=== PATIENT | female | born 1940 | race Caucasian/White ===

== ENCOUNTER 2019-04-02 20:01 | Inpatient (IN) | payer MEDICARE ==
[2019-04-02] MEDS ORDERED: Albuterol Sulfate 2.5 mg/3 ml Neb ONE (20:17)
--- NOTE | 2019-04-02 20:49 | RAD ---
PORTABLE CHEST: HISTORY: Shortness of breath. COMPARISON: None. FINDINGS: Moderate-sized left effusion. Cardiomegaly. Vascular congestion. Left basilar atelectasis due to t he large effusion. Left basilar infiltrate cannot be excluded. Surgical clips in the left axilla may indicate prior left breast procedure. IMPRESSION: 1. Moderate-sized left effusion. 2. Cardiomegaly with mild vascular congestion. POS: NGOC
[2019-04-02] MEDS ORDERED: predniSONE 20 MG TAB ONE (20:59)
[2019-04-02 21:06] LABS: Band 8 % (5-11); Hemoglobin 10.4 g/dL (12.0-16.0); Lymphocytes 5 % (21-51); MDiff Complete? YES; Mean Corpuscular HGB CONC 32.8 g/dL (32.0-36.0); Mean Corpuscular Hemoglobin 29.4 pg (27.0-31.0); Mean Corpuscular Volume 89.4 fL (78.0-98.0); Mean Platelet Volume 6.5 fL (7.4-10.4); Metamyelocyte 1 % (0-0); Monocytes 3 % (0-10); Neutrophil 83 % (42-75); Platelet Count 493 thou/uL (130-400); Platelet Morphology Comment Appears Increased; RBC Distribution Width 14.7 % (11.5-14.5); Red Blood Cell (RBC) Count 3.53 mill/uL (4.20-5.40); White Blood Cell (WBC) Count 19.2 thou/uL (4.8-10.8)
[2019-04-02 21:10] LABS: ALT (SGPT) 76 U/L (8-55); AST (SGOT) 74 U/L (5-34); Albumin 2.9 g/dL (3.4-4.8); Alkaline Phosphatase 226 U/L (40-150); Anion Gap 15 mmol/L (10-20); BUN (Urea Nitrogen) 26 mg/dL (9.8-20.1); Bilirubin, Total 0.4 mg/dL (0.2-1.2); Calc. Creatinine Clearance 0 mL/min (70-130); Calcium 9.1 mg/dL (7.8-10.44); Carbon Dioxide 22 mmol/L (23-31); Chloride 91 mmol/L (98-107); Estimated GFR-MDRD 53; Globulin 3.2 g/dL (2.4-3.5); Glucose 132 mg/dL (83-110); Potassium 3.3 mmol/L (3.5-5.1); Protein, Total 6.1 g/dL (6.0-8.3); Sodium 125 mmol/L (136-145)
[2019-04-02 23:19] LABS: Actual Bicarbonate (HCO3a) 22.5 mEq/L (22-28); Analyzer IN Cardio ER; Base Excess (BEa) -1.7 mEq/L (-2.0 to +3.0); CO2 Tension 36.3 mmHg (35.0-45.0); Calcium, Ionized 1.17 mmol/L (1.12-1.30); Carboxyhemoglobin (COHb) 0.8 gm% (0.0-3.0); Hemoglobin (Hb) 11.1 g/dL (12.0-16.0); O2 Tension (PaO2) 61.4 mmHg (> 70.0); pH, Arterial 7.41 (7.35-7.45)
[2019-04-02 23:21] LABS: ALV-art Gradient 92.865 (0-20); Puncture Site RRA
[2019-04-02 23:44] VITALS: BMI 23.4
[2019-04-03] MEDS ORDERED: Mirtazapine 15 MG TAB PO SCH (01:00)
[2019-04-03] MEDS ORDERED: Ondansetron PF 4 MG/2 ML Vial IVP PRN (01:49)
[2019-04-03] MEDS ORDERED: Acetaminophen 500 MG TAB PO PRN (01:49)
[2019-04-03] MEDS ORDERED: Ondansetron ODT 4 MG TAB PO PRN (01:49)
[2019-04-03] MEDS ORDERED: Benzonatate 100 MG CAP PO PRN (01:49)
[2019-04-03] MEDS ORDERED: hydrALAZINE 20 MG/ML VIAL SLOW IVP PRN (01:49)
[2019-04-03] MEDS ORDERED: Potassium Chloride 20 MEQ TAB PO SCH ×2 (02:00→08:00)
[2019-04-03 02:40] LABS: Band 14 % (5-11); Hemoglobin 9.7 g/dL (12.0-16.0); Lymphocytes 3 % (21-51); MDiff Complete? YES; Mean Corpuscular HGB CONC 33.2 g/dL (32.0-36.0); Mean Corpuscular Hemoglobin 29.6 pg (27.0-31.0); Mean Corpuscular Volume 89.1 fL (78.0-98.0); Mean Platelet Volume 6.4 fL (7.4-10.4); Monocytes 2 % (0-10); Neutrophil 81 % (42-75); Platelet Count 438 thou/uL (130-400); Platelet Morphology Comment Appears Increased; RBC Distribution Width 14.8 % (11.5-14.5); Red Blood Cell (RBC) Count 3.28 mill/uL (4.20-5.40); White Blood Cell (WBC) Count 21.1 thou/uL (4.8-10.8)
[2019-04-03 02:52] LABS: ALT (SGPT) 78 U/L (8-55); AST (SGOT) 82 U/L (5-34); Albumin 2.6 g/dL (3.4-4.8); Alkaline Phosphatase 197 U/L (40-150); Anion Gap 11 mmol/L (10-20); BUN (Urea Nitrogen) 24 mg/dL (9.8-20.1); Bilirubin, Total 0.4 mg/dL (0.2-1.2); Calc. Creatinine Clearance 55 mL/min (70-130); Carbon Dioxide 24 mmol/L (23-31); Chloride 93 mmol/L (98-107); Estimated GFR-MDRD 65; Glucose 125 mg/dL (83-110); Potassium 3.6 mmol/L (3.5-5.1); Protein, Total 5.6 g/dL (6.0-8.3); Sodium 124 mmol/L (136-145)
[2019-04-03] MEDS: methylPREDNISolone Sod Succ 40 MG VIAL IVP SCH ×2 (05:15→11:42)
--- NOTE | 2019-04-03 08:18 | HP ---
PRIMARY CARE PROVIDER: Dr. Lagunas at [facility]. CHIEF COMPLAINT: Shortness of breath. HISTORY OF PRESENT ILLNESS: This is a 78-year-old female, who presented to [facility] Emergency Department with approximate 2-day history of cough, fever and shortness of breath. The daughter reports that the patient's spouse was recently diagnosed with upper respiratory infection and treated with antibiotic therapy, noting her mother presenting with similar complaints. However, did not respond to a breathing treatment which the daughter administered from a home nebulizer that belongs to the patient's . The patient was apparently noted 83% on room air and did not respond to the bronchodilator therapy. No specific history of lung disease chronic oxygen use, or travel history. No associated nausea, vomiting, diarrhea, or antibiotic exposure. The patient stated her symptoms were worse with deep inspiration or lying flat. In the emergency room, the patient underwent general evaluation including chest imaging showing evidence of left-sided pleural effusion with cardiomegaly and mild vascular prominence. The patient was treated in the emergency room with prednisone 60 mg x1 dose in addition to DuoNeb and albuterol sulfate nebulized solution. The patient was transferred to the telemetry unit for further evaluation. PAST MEDICAL HISTORY: 1. Hypertension. 2. Hyperlipidemia. 3. Depression. PAST SURGICAL HISTORY: Reviewed and negative. CURRENT MEDICATIONS: 1. Lipitor 40 mg p.o. at bedtime. 2. Amlodipine 10 mg p.o. daily. 3. Atenolol 50 mg p.o. at bedtime. 4. Mirtazapine 15 mg p.o. at bedtime. 5. Benazepril 20 mg p.o. daily. ALLERGIES: NO TRUE DRUG ALLERGIES, PER DAUGHTER'S REPORT, HOWEVER, PATIENT WITH MULTIPLE DRUGS WITH INTOLERANCE AND SIDE EFFECTS. FAMILY HISTORY: Positive for hypertension. SOCIAL HISTORY: The patient resides in [place], [place] and , accompanied by her daughter in the hospital. Retired. No current alcohol, tobacco, or illicit drug use. REVIEW OF SYSTEMS: CONSTITUTIONAL: Negative for weight loss or gain, ability to conduct usual activities. SKIN: Negative for rash, itching. EYES: Negative for double vision, pain. ENT/MOUTH: Negative for nose bleeding, neck stiffness, pain, tenderness. CARDIOVASCULAR: Negative for palpitations, dyspnea on exertion, orthopnea. RESPIRATORY: Negative for shortness of breath, wheezing, cough, hemoptysis, fever or night sweats. GASTROINTESTINAL: Negative for poor appetite, abdominal pain, heartburn, nausea, vomiting, constipation, or diarrhea. GENITOURINARY: Negative for urgency, frequency, dysuria, nocturia. MUSCULOSKELETAL: Negative for pain, swelling. NEUROLOGIC/PSYCHIATRIC: Negative for anxiety, depression. ALLERGY/IMMUNOLOGIC: Negative for skin rash, bleeding tendency. Otherwise, negative except as stated per HPI. PHYSICAL EXAMINATION: VITAL SIGNS: On admission. Blood pressure 137/61, pulse 89, respiratory rate 20, temperature 98.5 degrees Fahrenheit, O2 saturation 94% on 3 L/minute by nasal cannula. GENERAL APPEARANCE: This is a 78-year-old female, alert and oriented x3, pleasant, in mild respiratory distress. HEENT: Pupils are equal, round, reactive to light and accommodation. Extraocular muscles are intact. No scleral icterus. No conjunctival injection. Nares patent. OP is clear. Teeth in good repair. NECK: Supple. No cervical adenopathy. No thyromegaly. No carotid bruits. No JVD appreciated. Cervical spine with full active and passive range of motion. No meningeal signs noted. CHEST: Diminished breath sounds bilaterally, left greater than right. Expiratory wheezing noted and scattered rhonchi. CARDIOVASCULAR: S1, S2 without noted murmur, rub, or gallop. ABDOMEN: Rounded, soft, nontender, and nondistended. Bowel sounds are positive in all 4 quadrants. There is no hepatosplenomegaly. No abdominal bruits. No rebound or guarding appreciated. EXTREMITIES: Warm and dry with fair turgor. No clubbing, cyanosis, or asymmetric edema appreciated. Pulses palpable distally at the dorsalis pedis, posterior tibial, and popliteal arteries bilaterally. Capillary refill is less than 2 seconds. NEUROLOGIC: Cranial nerves 2 through 12 are grossly intact. No focal or lateralizing signs appreciated. PERTINENT LAB AND X-RAY FINDINGS: Sodium 125, potassium 3.3, chloride 91, CO2 of 22, BUN 26, creatinine 1.02, estimated GFR 53, glucose 132, lactic acid level 0.7, calcium 9.1, AST 74, ALT of 76, alkaline phosphatase 226. BNP 523. Troponin negative x1. CBC showed a white blood cell count of 19.2, hemoglobin 10, hematocrit 32, platelet count 493 with 83% neutrophils. ABG dated 04/02/2019 on 28% FiO2 showed a pH of 7.41, pCO2 36.3, PO2 61.4, bicarb 22.5, O2 saturation 90%. Portable chest x-ray dated 04/02/2019, showed moderate left-sided pleural effusion with cardiomegaly and mild vascular prominence. EKG dated 04/02/2019, by my interpretation, shows sinus mechanism with heart rates in the 90s. Normal R-wave progression noted in the precordial leads. Right bundle-branch block pattern noted. Bifascicular block pattern noted. ASSESSMENT/PLAN: 1. Acute hypoxic respiratory failure. Suspect secondarily to left pleural effusion and questionable early pneumonia. We will continue oxygen supplementation to maintain O2 saturations greater than or equal to 90%. See management below for further details. 2. Bacterial pneumonia, left lower lobe. Suspected given the patient's presentation with questionable parapneumonic effusion. Continue antibiotic therapy with Levaquin 750 mg IV daily. Add DuoNeb q.4 hours. Continue Solu-Medrol 40 mg IV q.6 hours. 3. Left pleural effusion. Exact etiology unclear. Questionable infectious process versus component of early heart failure. Continue Lasix 40 mg IV q.12 hours. Check 2D transthoracic echocardiogram for assessment of ejection fraction and cardiac efficiency. 4. Hyponatremia. Suspect secondary to volume overload and decreased oral intake. Serial sodium monitoring with diuretic therapy. 5. Hypokalemia. Potassium chloride 40 mEq p.o. b.i.d. and repeat potassium level in the a.m. 6. Transaminitis. Suspect hepatic congestion as underlying etiology. Hold Lipitor. Repeat LFTs in the a.m. 7. Neutrophilic leukocytosis. Suspect secondary to #2. Repeat CBC in the a.m. 8. Prophylaxis. SCDs while in bed. Pepcid 20 mg p.o. b.i.d. 9. Code status is do not attempt resuscitation, confirmed with the patient and daughter. Surrogate medical decision maker is the patient's daughter. Job ID: [id number]
[2019-04-03] MEDS: Famotidine 20 MG TAB PO SCH (08:36)
[2019-04-03] MEDS: Furosemide 40 MG/4 ML VIAL SLOW IVP SCH (08:36)
[2019-04-03 13:06] LABS: BF Color Yellow; Body Fluid Source Thoracentesis Fluid; Clarity Hazy (Clear); Tube # 1
[2019-04-03 13:07] LABS: BF RBC Count - Manual 114 /cumm
[2019-04-03 13:37] LABS: Cell Count Non Hematic 65 %; Lymphocytes 15 %
[2019-04-03 13:38] LABS: BF Segmented Neutrophils 10 %; Eosinophils 10 %
[2019-04-03 13:58] LABS: Pleural Fluid, Protein 3.3 g/dL
--- NOTE | 2019-04-03 14:40 | PDOC.EVN ---
Event Note - Event Note Event Note: Pt seen and examined.Chart reviewed. Pt w large pleural effusion ,coming in w Ac Respiratory failire consulted PCCM and bedside Thoracentesis done w removal of 1800 ml pleural fluid from left side.Pt feels better now.care discussed w family at bedside ECHOordered results pending. add abdominal US for LFt elevation but most likley due to Passive hepatic congestion from CHF.cont diuresis & fluid restriction Consult nephrology for hyponatremia. likely Hypervolemic from CHF.Monitor HD stable & clinically better.will follow
[2019-04-03 14:53] LABS: WBC/NonHematic-Auto 430 /cumm
--- NOTE | 2019-04-03 16:20 | OP ---
DATE OF PROCEDURE: 04/03/2019 SERVICE: Pulmonary Medicine. PROCEDURE PERFORMED: Left-sided thoracentesis, ultrasound-guided. CONSENT: Risks and benefits of the procedure were explained to the patient. All questions were answered and alternative options explained. STAFF PHYSICIAN: Arun Rodrigues MD MEDICATIONS USED: Lidocaine 1% without epinephrine, total quantity 8 mL. PREOPERATIVE DIAGNOSES: 1. Sepsis. 2. Pleural effusion. POSTPROCEDURE DIAGNOSES: 1. Sepsis. 2. Acute hypoxic respiratory failure. DESCRIPTION OF PROCEDURE: Time-out was performed by the procedure team and the patient. The patient was positively identified using name and date of . The procedure site was marked. Vital sign monitoring was accomplished by noninvasive hemodynamic monitoring, pulse oximetry, and telemetry. In the seated position, the left posterior hemothorax was examined using ultrasound probe. The diaphragm and pleural fluid were easily identified. The skin was prepped and draped in sterile fashion and anesthetized with 1% lidocaine without epinephrine. A finder needle was inserted in the pleural space with return of clear yellow pleural fluid. A pleural drainage catheter was inserted in the same location, and a total quantity of 1800 mL of minimally opaque yellow fluid was withdrawn by syringe pump technique. A sample was sent for analysis. Evacuation of fluid term was terminated because we arrived at -20 cm of water pressure. At that time, the fluid being withdrawn was respirophasic. The intact catheter was withdrawn on exhalation, and a sterile dressing was applied. The patient had stable vitals throughout the entire procedure. ESTIMATED BLOOD LOSS: Less than 1 mL. COMPLICATIONS: None. Job ID: [id number]
--- NOTE | 2019-04-03 17:36 | CON ---
DATE OF CONSULTATION: 04/03/2019 SERVICE: Pulmonary Medicine. REASON FOR CONSULTATION: Pleural effusion. HISTORY OF PRESENT ILLNESS: The patient is a 78-year-old white female with past medical history significant for COPD. She was in her usual state of health until about 10 days prior to admission when she started having increasing dyspnea with exertion. She specifically denies orthopnea, nausea, vomiting, diarrhea, arthralgias, hot or red or swollen joints, chest discomfort, or palpitations. She presented to the emergency department and was discovered to have a large pleural effusion. Overnight, she was diuresed. She is feeling a little bit better this morning. Otherwise, she has no specific complaints. She indicates having some low-grade temperatures. PAST MEDICAL HISTORY: Hypertension Dyslipidemia Major depressive disorder PAST SURGICAL HISTORY: None FAMILY HISTORY: Noncontributory. SOCIAL HISTORY: Negative to tobacco, alcohol, or illicit drug use. No exposure to chemicals, dusts, dusts, or tuberculosis. ALLERGIES: No true drug allergies. MEDICATIONS: List of inpatient medications were reviewed. Steroids have been converted over to an oral medication. REVIEW OF SYSTEMS: General, Head, Ears, Eyes, Nose, Throat, Cardiovascular, Respiratory, GI, , Musculoskeletal, Neurologic, and Skin are negative except as mentioned in the HPI. PHYSICAL EXAMINATION: VITAL SIGNS: Afebrile, pulse 84, blood pressure 139/61, 96% on 3L nasal cannula. GENERAL: The patient is awake and alert, in no apparent distress. LUNGS: Decent air entry on the right. There is decreased air entry on the left. There is rhonchi and wheezing both present. Dependent crackles are present bilaterally. HEART: Normal rate, regular. ABDOMEN: Soft, nontender, and nondistended. Bowel sounds are positive. MUSCULOSKELETAL: No cyanosis or clubbing. There is no pitting in the bilateral lower extremities. NEUROLOGIC: Nonfocal. LABORATORY DATA: WBC 21.1, hemoglobin 9.7, and platelets 438,000. A pH 7.41, pCO2 of 36, pO2 of 62. Sodium 124, basic metabolic profile is otherwise unremarkable with a downtrending creatinine of 0.85. AST and ALT are marginally elevated. Alkaline phosphatase is downtrending. Troponin is negative x1. Lactate is unremarkable. BNP 522. IMAGING STUDIES: Chest x-ray shows a large left-sided pleural effusion. Pulmonary vascular congestion and interstitial edema are also present. No obvious infiltrate is present, though it cannot be excluded on the basis of this x-ray. ASSESSMENT: 1. Sepsis. 2. [id number] heart failure, not otherwise specified. 3. Pleural effusion on the left. 4. Community-acquired pneumonia, possible. 5. Chronic obstructive pulmonary disease with acute exacerbation. 6. Acute hypoxic respiratory failure. DISCUSSION AND PLAN: Agree with our empiric antibiotics. We will need to proceed with a thoracentesis to characterize the quality of this fluid and exclude the possibility of infectious or malignant process. Pulmonary/ Critical Care will continue to follow along. 70 minutes have been devoted to this patient in various activities. I personally reviewed all imaging studies and laboratory data noted within this document. For fifty percent of this time, I was interacting with the patient at the bedside or coordinating care with the care team. For the remainder of the time I was immediately available to the patient in the hospital unit. Job ID: [id number] MTDD
--- NOTE | 2019-04-03 19:45 | ULT ---
ABDOMINAL ULTRASOUND: 04/03/19 HISTORY: Elevated LFTs. Real time imaging of the upper abdomen shows a normal appearing gallbladder. The common duct is aiden l in caliber at 3 mm. The visualized liver parenchyma shows no focal findings. It measures 15 cm in length. The spleen measures 7.9 cm. The right and left kidneys are within normal limits of size and not obstructed. The pancreas is obscu red. Portions of the abdominal aorta and IVC region are also obscured. IMPRESSION: Unremarkable abdomen ultrasound. POS: NGOCH
[2019-04-03] MEDS: Ascorbic Acid 500 mg Chewable Tablet PO SCH (20:47)
[2019-04-03] MEDS: Atenolol 50 MG TAB PO SCH (20:47)
[2019-04-03] MEDS: Mirtazapine 15 MG TAB PO SCH (20:48)
[2019-04-03] MEDS: Multivit, Therapeutic 1 TAB PO SCH (20:49)
[2019-04-03] MEDS ORDERED: Amlodipine 10 MG TAB PO SCH (21:00)
[2019-04-03] MEDS ORDERED: Atorvastatin Calcium 40 MG TAB PO SCH (21:00)
--- NOTE | 2019-04-04 02:07 | CON ---
DATE OF CONSULTATION: CONSULTING PHYSICIAN: Christine Godoy MD REASON FOR CONSULTATION: Hyponatremia. IMPRESSION: Hyponatremia. This is possibly in syndrome of inappropriate antidiuretic hormone secretion, but cannot rule out other potential causes of hyponatremia including hypovolemic hyponatremia or dilutional hyponatremia. PLAN: 1. Urine chemistry to be able to identify what type of hyponatremia to get treatment accordingly. Therefore, we will send urine sodium and urine osmolality. 2. For now, we will place this patient on fluid restriction and increase the protein intake in the way of increased animal meat. 3. Further management will be dependent on the clinical course. HISTORY OF PRESENT ILLNESS: That of a 78-year-old female patient who presented here with shortness of breath, noted with a sodium of 125 on presentation. As a result, renal consultation has been placed. The patient denies any nausea, vomiting or diarrhea. Was recently diagnosed with upper respiratory tract infection. As a result of this pulmonary involvement, the potential SIADH as a cause of this hyponatremia is being considered. PAST MEDICAL HISTORY: Significant for hypertension, dyslipidemia, and depression. MEDICATIONS: Reviewed and documented on [employer]. ALLERGIES: NO KNOWN DRUG ALLERGIES. FAMILY HISTORY: Not significantly related to present illness. SOCIAL HISTORY: Many years of tobacco use, quit about 3 weeks ago. No illicit drug use. No alcohol. REVIEW OF SYSTEMS: As documented in the body of the history. All the other systems were reviewed and found not to be significantly related to presenting illness. PHYSICAL EXAMINATION: GENERAL: The patient was found to be ill looking. VITAL SIGNS: Noted with the following vital signs; afebrile, temperature 97.9, pulse 87, respiratory rate of 16, O2 saturation 100% on 2 L with a blood pressure of 112/60. HEENT: Unremarkable. Moist oral mucosa. NECK: Supple. No conjunctival injection or icterus. CARDIOVASCULAR: First and second heart sounds were heard. RESPIRATORY: Clear to auscultation. DIGESTIVE: Revealed a distended abdomen. EXTREMITIES: No peripheral edema. SKIN: No new gross rash. LYMPHATICS: No peripheral lymphadenopathy. SUMMARY: This is a 78-year-old female patient who presented with shortness of breath, noted with hyponatremia, thus the renal consultation. Thank you for this consultation. We will follow with you. Job ID: [id number]
[2019-04-04 05:33] LABS: ALT (SGPT) 84 U/L (8-55); AST (SGOT) 80 U/L (5-34); Albumin 2.4 g/dL (3.4-4.8); Alkaline Phosphatase 165 U/L (40-150); Anion Gap 10 mmol/L (10-20); BUN (Urea Nitrogen) 23 mg/dL (9.8-20.1); Band 6 % (5-11); Bilirubin, Total 0.2 mg/dL (0.2-1.2); Calc. Creatinine Clearance 52 mL/min (70-130); Calcium 8.7 mg/dL (7.8-10.44); Carbon Dioxide 22 mmol/L (23-31); Chloride 98 mmol/L (98-107); Estimated GFR-MDRD 61; Globulin 2.5 g/dL (2.4-3.5); Glucose 154 mg/dL (83-110); Hemoglobin 9.6 g/dL (12.0-16.0); Hypochromia SLIGHT = 6-15 cells (100X) (0-5/hpf); Lymphocytes 3 % (21-51); MDiff Complete? YES; Mean Corpuscular HGB CONC 32.2 g/dL (32.0-36.0); Mean Corpuscular Hemoglobin 29.1 pg (27.0-31.0); Mean Corpuscular Volume 90.2 fL (78.0-98.0); Mean Platelet Volume 6.4 fL (7.4-10.4); Monocytes 2 % (0-10); Neutrophil 88 % (42-75); Platelet Count 445 thou/uL (130-400); Platelet Morphology Comment Appears Increased; Potassium 4.4 mmol/L (3.5-5.1); Protein, Total 4.9 g/dL (6.0-8.3); Reactive Lymphocytes 1 % (0-10); Sodium 126 mmol/L (136-145); White Blood Cell (WBC) Count 19.3 thou/uL (4.8-10.8)
[2019-04-04] MEDS: Famotidine 20 MG TAB PO SCH (08:48)
[2019-04-04] MEDS: Furosemide 40 MG/4 ML VIAL SLOW IVP SCH (08:49)
[2019-04-04] MEDS: predniSONE 20 MG TAB PO SCH (08:49)
[2019-04-04] MEDS ORDERED: Tolvaptan 15 MG TAB PO SCH (09:00)
--- NOTE | 2019-04-04 10:43 | PRG ---
DATE OF SERVICE: 04/04/2019 SUBJECTIVE: The patient is seen and examined. Noted with the following vital signs. OBJECTIVE: VITAL SIGNS: Afebrile, temperature 98.6, pulse 92, respiratory rate of 19, O2 saturations 93% with blood pressure of 106/55. HEENT: Unremarkable. Wet mucosa. NECK: Supple. No conjunctival injection or icterus. CARDIOVASCULAR SYSTEM: First and second heart sounds were heard. RESPIRATORY SYSTEM: Revealed diminished breath sounds. EXTREMITIES: No peripheral edema. SKIN: No new gross rash. LYMPHATICS: No peripheral lymphadenopathy. LABORATORY INVESTIGATION: Showed sodium of 126. Urine chemistry shows sodium of 36, . IMPRESSION: Hyponatremia likely in the context of syndrome of inappropriate antidiuretic hormone secretion, which most likely have been secondary to pulmonary pathology. PLAN: 1. Discontinue IV Lasix. 2. Increase protein intake. 3. Anti-ADH tolvaptan to be initiated. 4. Repeat sodium level check later today and make further changes accordingly. Job ID: [id number]
--- NOTE | 2019-04-04 11:01 | PRG ---
DATE OF SERVICE: 04/04/2019 SERVICE: Pulmonary Medicine. INTERVAL HISTORY: The patient is doing fine from respiratory standpoint. Breathing comfortably. No complaints of chest discomfort, nausea, or vomiting. She slept well last night. She is not coughing up any sputum. PHYSICAL EXAMINATION: VITAL SIGNS: Afebrile, pulse 92, blood pressure 106/55, respirations 19, saturation 93% on 2 L nasal cannula. GENERAL: The patient is awake and alert, in no apparent distress. LUNGS: Decent air entry. No crackles are appreciated. HEART: Normal rate, regular. ABDOMEN: Soft, nontender, nondistended. Bowel sounds are positive. MUSCULOSKELETAL: No cyanosis or clubbing. No pitting in the bilateral lower extremities. NEUROLOGIC: Grossly nonfocal. LABORATORY DATA: WBC 19.3, hemoglobin 9.6 and stable, platelets 445,000. Neutrophil count is 88%, band count is dropping to 6%. Sodium 126 and up trending gently. Creatinine 0.9. Basic metabolic profile is otherwise unremarkable. AST and ALT are stable. Alkaline phosphatase continues to downtrend. Pleural fluid LDH 144, total protein 3.3. Blood cultures x2 and body fluid culture otherwise unremarkable. IMAGING STUDIES: Echocardiogram shows a normal ejection fraction at 55% to 60%. Mild mitral regurgitation is present. There is a large pleural effusion (prior to thoracentesis). ASSESSMENT: 1. Acute hypoxic respiratory failure, resolved. 2. Pleural effusion on the left, status post thoracentesis demonstrating a weak exudate, cytology pending. 3. Community-acquired pneumonia, unlikely. 4. Chronic obstructive pulmonary disease with volume overloaded state. 5. Sepsis, improving. DISCUSSION AND PLAN: We will continue our antibiotics. We are waiting on the cytology of the fluid. It does not look like a parapneumonic effusion. It is a weak exudate. The cell type is curious. There are 10% eosinophils and this was identified after steroids were initiated. Pulmonary/Critical Care will continue to follow along for the time being. Job ID: [id number]
--- NOTE | 2019-04-04 14:02 | PQF ---
INOCENCIO OLIVAS RICHA MD [phone] [id number] [phone] CLINICAL DOCUMENTATION IMPROVEMENT CLARIFICATION FORM: ICD-10 Updated PLEASE DO AN ADDENDUM TO THE PROGRESS NOTE WITH ANY DOCUMENTATION UPDATES OR ADDITIONS AND CARRY THROUGH TO DC SUMMARY. THANK YOU. DATE: 04/04/19 ATTN:DR. Naren DENNIS Please exercise your independent, professional judgment in responding to the clarification form. Clinical indicators are provided on the bottom of this form for your review. Please check appropriate box(s): HEART FAILURE: A. TYPE: [ ] Systolic / HFrEF [ ] Diastolic / HFpEF [ ] Combined Systolic / Diastolic B. ACUITY [ ] Acute [ ] Acute on Chronic [ ] Chronic [ X ] Other diagnosis [ ] Unable to determine In addition, please specify: Present on Admission (POA): [ ] Yes [ ] No [ X ] Unable to determine For continuity of documentation, please document condition throughout progress notes and discharge summary. Thank You. CLINICAL INDICATORS - SIGNS / SYMPTOMS / LABS 04/03 ( JOSE) H & P : ASSESSMENT AND PLAN 3). LEFT PLEURAL EFFUSION. EXACT ETIOLOGY UNCLEAR. QUESTIONABLE INFECTIOUS PROCESS VERSES COMPONENT OF EARLY HEART FAILURE. 04/03 (BRADING CONSULT ) ASSESSMENT : 2). ACUTE ON CHRONIC HEART FAILURE, NOT OTHERWISE SPECIFIED 04/03 ECHO: EF 55-60%, NORMAL SIZE LEFT ATRIUM, LEFT VENTRICULAR SIZE IS NORMAL , MILD MITRAL /TRICUSPID REGURGITATION IS PRESENT, LARGE PLEURAL EFFUSION. RISK: ADVANCED AGE ( 78) PLEURAL EFFUSION H& P (JOSE) PNEUMONIA H& P (JOSE) TREATMENTS: LASIX IVP (04/03-PRESENT) FLUID RESTRICTION (04/03-PRESENT) THORACENTESIS 04/03 (1800ML FLUID REMOVAL) THANK YOU! LIBIA (This form is maintained as a part of the permanent medical record) 2014 [employer] All Rights Reserved [email or web address] [phone] MAVIS
[2019-04-04 16:06] LABS: Sodium 127 mmol/L (136-145)
--- NOTE | 2019-04-04 16:59 | PDOC.PN ---
- Subjective Encounter Start Date: 04/04/19 Encounter Start Time: 16:58 Subjective: feels much better.appetite coming back -: no CP/SOB - Objective Resuscitation Status - Order Detail: 04/03/19 01:39 Resuscitation Status Routine Resuscitation Status: DNAR: NO Resuscitation Discussed with: Confirmed with patient MAR Reviewed: Yes Vital Signs & Weight: Vital Signs (12 hours) Temp Pulse Resp BP Pulse Ox 04/04/19 16:00 98.4 F 89 18 103/55 L 100 04/04/19 12:32 90 14 04/04/19 12:00 98.2 F 90 18 108/51 L 94 L 04/04/19 07:47 98.6 F 92 19 106/55 L 93 L 04/04/19 07:26 80 14 Weight Weight 138 lb 1.6 oz I&O: 04/03/19 04/04/19 04/05/19 06:59 06:59 06:59 Intake Total 180 650 Output Total 275 2475 Balance -95 -1825 Result Diagrams: 04/04/19 04:51 04/04/19 15:31 Additional Labs: Microbiology 04/03/19 11:35 Pleural fluid Body Fluid Culture - Preliminary 04/03/19 02:19 Venous blood - Right Arm Blood Culture - Preliminary Specimen has been received and culture in progress. No Growth to date. 04/03/19 02:12 Venous blood - Right Arm Blood Culture - Preliminary Specimen has been received and culture in progress. No Growth to date. Laboratory Tests 04/02/19 20:40 Troponin I Less than 0.010 Phys Exam - Physical Examination Constitutional: NAD HEENT: PERRLA, moist MMs, sclera anicteric, oral pharynx no lesions Neck: no nodes, no JVD, supple, full ROM Respiratory: no wheezing, no rales, no rhonchi, clear to auscultation bilateral Cardiovascular: RRR, no significant murmur Gastrointestinal: soft, non-tender, no distention, positive bowel sounds Musculoskeletal: no edema, pulses present Neurological: non-focal, normal sensation, moves all 4 limbs Psychiatric: normal affect, A&O x 3 Skin: no rash Dx/Plan (1) ac hypoxic respiratory failure Status: Acute Comment: Due to #2.and may be COPD and PNA.Better after thoracentesis.ConT prednisone,IV Abx (2) Pleural effusion Code(s): J90 - PLEURAL EFFUSION, NOT ELSEWHERE CLASSIFIED Status: Acute Comment: follow fluid Cx and Cell pathology results (3) Hyponatremia Code(s): E87.1 - HYPO-OSMOLALITY AND HYPONATREMIA Status: Acute Comment: joe SIADH from Lung process.Started on Tolvaptan and fluid restriction.monitor. (4) PNA (pneumonia) Code(s): J18.9 - PNEUMONIA, UNSPECIFIED ORGANISM Status: Acute Comment: empiric IV ABx. (5) SIRS (systemic inflammatory response syndrome) Code(s): R65.10 - SIRS OF NON-INFECTIOUS ORIGIN W/O ACUTE ORGAN DYSFUNCTION Status: Acute (6) LFT elevation Code(s): R94.5 - ABNORMAL RESULTS OF LIVER FUNCTION STUDIES Status: Acute Comment: joe due to passive hepatic congestion.Abd US does not shwo anything acute - Plan plan discussed w/ family, continue antibiotics, PT/OT, respiratory therapy, incentive spirometry, DVT proph w/SCDs Unclear etiology of pleural effusion & fluid OL. -: ECHO WNL.recommend repeat ECHO in 3 months -: empiric ABx, steroids,nebs.[facility] -: leucocytosis & bandemia improving.monitor. -: Ambukate .am labs * . Review of Systems - Review of Systems Constitutional: weakness. negative: fever, chills, sweats, malaise, other Respiratory: SOB with Excertion. negative: Cough, Dry, Shortness of Breath, Hemoptysis, Pleuritic Pain, Sputum, Wheezing Cardiovascular: negative: chest pain, palpitations, orthopnea, paroxysmal nocturnal dyspnea, edema, light headedness, other Gastrointestinal: negative: Nausea, Vomiting, Abdominal Pain, Diarrhea, Constipation, Melena, Hematochezia, Other Genitourinary: negative: Dysuria, Frequency, Incontinence, Hematuria, Retention , Other Musculoskeletal: negative: Neck Pain, Shoulder Pain, Arm Pain, Back Pain, Hand Pain, Leg Pain, Foot Pain, Other Neurological: negative: Weakness, Numbness, Incoordination, Change in Speech, Confusion, Seizures, Other - Medications/Allergies Allergies/Adverse Reactions: Allergies Allergy/AdvReac Type Severity Reaction Status Date / Time amoxicillin [From Amoxil] Allergy Verified 04/03/19 00:11 butalbital [From Fiorinal] Allergy Verified 04/03/19 00:11 carvedilol [From Coreg] Allergy Verified 04/03/19 00:11 chlorthalidone Allergy Verified 04/03/19 00:11 citalopram [From Celexa] Allergy Verified 04/03/19 00:11 codeine Allergy Verified 04/03/19 00:11 erythromycin base Allergy Verified 04/03/19 00:11 metronidazole Allergy Verified 04/03/19 00:11 morphine Allergy Verified 04/03/19 00:11 paroxetine [From Paxil] Allergy Verified 04/03/19 00:11 penicillin V [From Pen-Vee K] Allergy Verified 04/03/19 00:11 TUSS-ORNADE Allergy Uncoded 04/03/19 00:11 Medications: Current Medications Acetaminophen (Tylenol) 1,000 mg PO Q6H PRN PRN Reason: Mild Pain (1-3) Albuterol/Ipratropium (Duoneb) 3 ml NEB [id number] [facility] Last Admin: 04/04/19 12:32 Dose: 3 ml Amlodipine Besylate (Norvasc) [address] [facility] Ascorbic Acid (Vitamin C) [address] [facility] Last Admin: 04/03/19 20:47 Dose: 500 mg Atenolol (Tenormin) [address] [facility] Last Admin: 04/03/19 20:47 Dose: Not Given Atorvastatin Calcium (Lipitor) [address] [facility] Benazepril HCl (Lotensin) [address] [facility] Last Admin: 04/03/19 20:48 Dose: Not Given Famotidine (Pepcid) 20 mg PO DAILY [facility] Last Admin: 04/04/19 08:48 Dose: 20 mg Hydralazine HCl (Apresoline) 10 mg SLOW IVP Q4H PRN PRN Reason: SBP > 180 and HR < 70 Levofloxacin 750 mg/ Device 150 mls @ 100 mls/hr IVPB Q24HR [facility] Last Admin: 04/04/19 02:30 Dose: 150 mls Mirtazapine (Remeron) [address] [facility] Last Admin: 04/03/19 20:48 Dose: 15 mg Multivitamins (Theragran) [address] [facility] Last Admin: 04/03/19 20:49 Dose: 1 tab Ondansetron HCl (Zofran Odt) 4 mg PO Q6H PRN PRN Reason: Nausea/Vomiting Ondansetron HCl (Zofran) 4 mg IVP Q6H PRN PRN Reason: Nausea/Vomiting Prednisone (Prednisone) 40 mg PO QAM-[facility] Stop: 04/07/19 08:01 Last Admin: 04/04/19 08:49 Dose: 40 mg
[2019-04-04] MEDS: Amlodipine 10 MG TAB PO SCH (20:59)
[2019-04-04] MEDS: Ascorbic Acid 500 mg Chewable Tablet PO SCH (20:59)
[2019-04-04] MEDS: Atenolol 50 MG TAB PO SCH (20:59)
[2019-04-04] MEDS: Mirtazapine 15 MG TAB PO SCH (21:00)
[2019-04-04] MEDS: Multivit, Therapeutic 1 TAB PO SCH (21:01)
[2019-04-05 04:57] LABS: Anion Gap 10 mmol/L (10-20); BUN (Urea Nitrogen) 26 mg/dL (9.8-20.1); Calc. Creatinine Clearance 45 mL/min (70-130); Calcium 8.8 mg/dL (7.8-10.44); Carbon Dioxide 27 mmol/L (23-31); Chloride 101 mmol/L (98-107); Estimated GFR-MDRD 51; Glucose 102 mg/dL (83-110); Potassium 4.5 mmol/L (3.5-5.1); Sodium 133 mmol/L (136-145)
[2019-04-05 05:03] LABS: Band 4 % (5-11); Hemoglobin 9.1 g/dL (12.0-16.0); Lymphocytes 6 % (21-51); MDiff Complete? YES; Mean Corpuscular HGB CONC 32.8 g/dL (32.0-36.0); Mean Corpuscular Hemoglobin 29.4 pg (27.0-31.0); Mean Corpuscular Volume 89.4 fL (78.0-98.0); Mean Platelet Volume 6.5 fL (7.4-10.4); Monocytes 8 % (0-10); Neutrophil 82 % (42-75); Platelet Count 457 thou/uL (130-400); Platelet Morphology Comment Appears Increased; RBC Distribution Width 14.9 % (11.5-14.5); Red Blood Cell (RBC) Count 3.11 mill/uL (4.20-5.40); White Blood Cell (WBC) Count 19.5 thou/uL (4.8-10.8)
[2019-04-05] MEDS: predniSONE 20 MG TAB PO SCH (09:00)
[2019-04-05] MEDS: Famotidine 20 MG TAB PO SCH (09:00)
[2019-04-05] MEDS ORDERED: guaiFENesin ER 600 MG TAB PO SCH (10:30)
--- NOTE | 2019-04-05 10:31 | RAD ---
CHEST TWO VIEWS: HISTORY: Pleural effusion. Questionable pneumonia. COMPARISON: Radiograph from 04/02/2018. FINDINGS: The large left pleural effusion has decreased in size. There are bibasilar air space opacities. The re is no pneumothorax. Severe nodular thickening in the left lung apex. No acute osseous abnormality. The lungs are hyperinflated. Left lower lobe air space opacity. IMPRESSION: 1. Slight interval size decrease of large left pleural effusion. 2. Left lower lobe air space opacity, as well as right lower lobe either mass or air space opacity, is similar. Close attenuation and follow-up imaging is recommended. 3. Nodular scarring, left lung apex. 4. If the findings in the right lung base do not change within the next week, a follow-up CT is elmer mmended to evaluate for underlying mass. POS: [facility]
--- NOTE | 2019-04-05 10:37 | PQF ---
INOCENCIO OLIVAS RICHA MD [id number] [facility]-292 [id number] CLINICAL DOCUMENTATION IMPROVEMENT CLARIFICATION FORM: ICD-10 Updated PLEASE DO AN ADDENDUM TO THE PROGRESS NOTE WITH ANY DOCUMENTATION UPDATES OR ADDITIONS AND CARRY THROUGH TO DC SUMMARY. THANK YOU. DATE: 04/05/19 ATTN:DR. Naren DENNIS Please exercise your independent, professional judgment in responding to the clarification form. Clinical indicators are provided on the bottom of this form for your review. Please check appropriate box(es): [ ] Sepsis due to: (Pna, UTI, gangrenous gall bladder, etc.) [ ] Severe sepsis with acute organ dysfunction of: (Examples: respiratory failure, encephalopathy, acute kidney failure, other) [ ] Septic Shock [ ] Localized infection without sepsis [X ] Other diagnosis _PNA without sepsis [ ] Unable to determine In addition, please specify: Present on Admission (POA): [ ] Yes [ X] No [ ] Unable to determine For continuity of documentation, please document condition throughout progress notes and discharge summary. Thank You. CLINICAL INDICATORS - SIGNS / SYMPTOMS / LABS 04/02 ED: RESP 16-24, 04/02 WBC 19.2 21.1 19.3 19.5 04/03 BAND 14 04/03 CONSULT (JANELL) ASSESSMENT 1)SEPSIS 04/04 PN (JANELL) ASSESSMENT 5) SEPSIS IMPROVING 04/04 PN (SONNY ) DX/PLAN: 5) SIRS NO FURTHER MENTION OF SEPSIS RISK BACTERIAL PNEUMONIA SUSPECTED (JOSE ) H & P PLEURAL EFFUSION ON LEFT (JANELL) ADVANCED AGE (78) TREATMENTS LEVAQUIN IV (04/03-PRESENT) SUPPLEMENTAL O2 THANK YOU! LIBIA (This form is maintained as a part of the permanent medical record) 2014 [employer]. All Rights Reserved [email or web address] [email or web address] [phone] MTDRosalia
--- NOTE | 2019-04-05 10:47 | PQF ---
INOCENCIO OLIVAS RICHA MD [id number] [facility]-292 [id number] CLINICAL DOCUMENTATION IMPROVEMENT CLARIFICATION FORM: ICD-10 Updated PLEASE DO AN ADDENDUM TO THE PROGRESS NOTE WITH ANY DOCUMENTATION UPDATES OR ADDITIONS AND CARRY THROUGH TO DC SUMMARY. THANK YOU. DATE: 04/05/19 ATTN:DR. Naren DENNIS Please exercise your independent, professional judgment in responding to the clarification form. Clinical indicators are provided on the bottom of this form for your review. Please check appropriate box(s): [ ] Pneumonia secondary to (specify organism / underlying disease) [ X] Simple Pneumonia (community acquired - nosocomial) [ ] Other diagnosis [ ] Unable to determine In addition, please specify: Present on Admission (POA): [ X] Yes [ ] No [ ] Unable to determine For continuity of documentation, please document condition throughout progress notes and discharge summary. Thank You. CLINICAL INDICATORS - SIGNS / SYMPTOMS / LABS 04/03 H & P (JOSE) ASSESSMENT AND PLAN: 2) BACTERIAL PNEUMONIA, LEFT LOWER LOBE. SUSPECTED GIVEN THE PATIENTS PRESENTATION WITH QUESTIONABLE PARAPNEUMONIC EFFUSION. CONTINUE ANTIBIOTIC THERAP WITH LEVAQUIN 750MG IV DAILY. 04/03 CONSULT (JANELL) ASSESSMENT: 4) COMMUNITY ACQUIRED PNEUMONIA, POSSIBLE 04/04 PN (JANELL) ASSESSMENT: 3) COMMUNITY -ACQUIRED PNEUMONIA, UNLIKELY. 04/04 PN (SONNY) DX/PLAN: 4) PNEUMONIA , UNSPECIFIED RISK: ADVANCED JESÚS ( 78) ACUTE HYPOXIC RESPIRATORY FAILURE ( JOSE H & P) LARGE PLEURAL EFFUSION ( ECHO REPORT) TREATMENTS LEVAQUIN IV ( 04/03-PRESENT) SOLUMEDROL IV ORDERED X 4 DOSES PULMONARY CONSULT THANK YOU! LIBIA (This form is maintained as a part of the permanent medical record) 2014 [employer] All Rights Reserved CELIA [email or web address] [phone] MTDD
--- NOTE | 2019-04-05 11:02 | PRG ---
DATE OF SERVICE: 04/05/2019 SERVICE: Pulmonary Medicine. INTERVAL HISTORY: The patient is doing really well from respiratory standpoint. She is breathing comfortably. She really does not have any complaints of nausea or vomiting. Her cough seems to be improving. She feels a rattle in her chest, but has a hard time liberating any sputum. There were no overnight events. PHYSICAL EXAMINATION: VITAL SIGNS: Afebrile with a T-max of 99.1. Pulse 95, blood pressure 111/53, respirations 18, saturation 94% on 1 L nasal cannula. GENERAL: The patient is awake and alert, in no apparent distress. LUNGS: Decent air entry. I do not appreciate any rhonchi or crackles. There is no prolonged expiratory phase. HEART: Normal rate and regular. ABDOMEN: Soft, nontender, nondistended. Bowel sounds are positive. MUSCULOSKELETAL: No cyanosis or clubbing. There is no pitting in the bilateral lower extremities. NEUROLOGIC: Grossly nonfocal. LABORATORY DATA: WBC 19.5, hemoglobin 9.1, and platelets 457,000. PH 7.41, pCO2 of 36, and pO2 of 61. Creatinine 1.05. Basic metabolic profile is otherwise unremarkable. Pleural fluid is consistent with a very weak exudate. This is predominantly nonhematologic cells, though eosinophils are markedly increased. Blood cultures x2 and acid-fast smear are negative. IMAGING STUDIES: Chest x-ray demonstrates significant interval improvement in the left pleural effusion. Underlying parenchymal disease cannot be excluded. ASSESSMENT: 1. Acute hypoxic respiratory failure, resolving. 2. Pleural effusion on the left, status post thoracentesis demonstrating a weak exudate, cytology pending. A non-hematologic cell predominates, though eosinophils play a major role in the cytology fluid. 3. Community-acquired pneumonia, unlikely. 4. Chronic obstructive pulmonary disease exacerbation secondary to volume overloaded state. 5. Sepsis, improving. DISCUSSION AND PLAN: We will continue the antibiotics. Cytology is currently pending. I will await for this to return. I will get a urinalysis, making certain we do not have nephrotic range proteinuria. I will initiate some Mucinex. If she is on room air by this afternoon, she can be considered for transition out of the hospital, though I have counseled her to come back to the emergency department if she has increasing respiratory disturbances. I will set her up to see me in clinic in 2 to 3 weeks in the outpatient setting with a repeat chest x-ray. If the pleural fluid persists, a CT of the chest will be considered. Job ID: [id number] MTDD
--- NOTE | 2019-04-05 14:26 | PDOC.PN ---
- Subjective Encounter Start Date: 04/05/19 Encounter Start Time: 14:25 Subjective: feels back to baseline & no new complaints -: wants to go home - Objective Resuscitation Status - Order Detail: 04/03/19 01:39 Resuscitation Status Routine Resuscitation Status: DNAR: NO Resuscitation Discussed with: Confirmed with patient MAR Reviewed: Yes Vital Signs & Weight: Vital Signs (12 hours) Temp Pulse Resp BP BP Pulse Ox 04/05/19 14:14 85 16 04/05/19 12:00 98.3 F 84 18 110/57 L 90 L 04/05/19 07:55 99.1 F 95 18 111/53 L 94 L 04/05/19 07:00 100 16 04/05/19 04:00 98.3 F 86 16 101/53 L 92 L Weight Weight 139 lb I&O: 04/04/19 04/05/19 04/06/19 06:59 06:59 06:59 Intake Total 650 1380 Output Total 2475 1550 Balance -1825 -170 Result Diagrams: 04/05/19 04:11 04/05/19 04:11 Additional Labs: Microbiology 04/03/19 11:35 Pleural fluid Acid Fast Bacilli Smear - Final 04/03/19 11:35 Pleural fluid Body Fluid Culture - Preliminary 04/03/19 02:19 Venous blood - Right Arm Blood Culture - Preliminary Specimen has been received and culture in progress. No Growth to date. 04/03/19 02:12 Venous blood - Right Arm Blood Culture - Preliminary Specimen has been received and culture in progress. No Growth to date. Laboratory Tests 04/02/19 04/02/19 04/03/19 20:40 20:40 02:19 WBC 19.2 H Band Neuts % (Manual) 8 Sodium 125 L 124 L 04/03/19 04/04/19 04/04/19 02:19 04:51 04:51 WBC 21.1 H 19.3 H Band Neuts % (Manual) 14 H 6 Sodium 126 L 04/04/19 04/05/19 04/05/19 15:31 04:11 04:11 WBC 19.5 H Band Neuts % (Manual) 4 L Sodium 127 L 133 L Radiology Reviewed by me: Yes (CXR-bibasilar opacities.less pleural effusion Left side) Phys Exam - Physical Examination Constitutional: NAD HEENT: PERRLA, moist MMs, sclera anicteric, oral pharynx no lesions Neck: no nodes, no JVD, supple, full ROM Respiratory: no wheezing, no rales, no rhonchi, clear to auscultation bilateral Cardiovascular: RRR, no significant murmur, no rub Gastrointestinal: soft, non-tender, no distention, positive bowel sounds Musculoskeletal: no edema, pulses present Neurological: non-focal, normal sensation, moves all 4 limbs Psychiatric: normal affect, A&O x 3 Skin: no rash Dx/Plan (1) PNA (pneumonia) Code(s): J18.9 - PNEUMONIA, UNSPECIFIED ORGANISM Status: Acute Qualifiers: Pneumonia type: due to unspecified organism Laterality: bilateral Comment: empiric IV ABx. (2) Pleural effusion Code(s): J90 - PLEURAL EFFUSION, NOT ELSEWHERE CLASSIFIED Status: Acute Comment: follow fluid Cx and Cell pathology results (3) Hyponatremia Code(s): E87.1 - HYPO-OSMOLALITY AND HYPONATREMIA Status: Acute Comment: joe SIADH from Lung process.1 dose Tolvaptan yesterday.fluid restriction.monitor. improved.133 today (4) SIRS (systemic inflammatory response syndrome) Code(s): R65.10 - SIRS OF NON-INFECTIOUS ORIGIN W/O ACUTE ORGAN DYSFUNCTION Status: Acute Comment: no evidence of sepsis (5) LFT elevation Code(s): R94.5 - ABNORMAL RESULTS OF LIVER FUNCTION STUDIES Status: Acute Comment: joe due to passive hepatic congestion.Abd US does not shwo anything acute (6) ac hypoxic respiratory failure Status: Resolved Comment: Due to #2.and may be COPD and PNA.Better after thoracentesis.ConT prednisone,IV Abx - Plan plan discussed w/ family, continue antibiotics, PT/OT, respiratory therapy, incentive spirometry, out of bed/ambulate, DVT proph w/SCDs CXr shows PNA but R base opacity will need OP f/u w CXR/CT in 6-8weeks -: await Pleural fluid cytology to make sure it's not malignant -: otherwise clinically better -: bandemia resolved. WBC high d/t Po steroids.cont -: apprecite PCCM input * .likely DC in am * am labs Review of Systems - Review of Systems Constitutional: negative: fever, chills, sweats, weakness, malaise, other Respiratory: negative: Cough, Dry, Shortness of Breath, Hemoptysis, SOB with Excertion, Pleuritic Pain, Sputum, Wheezing Cardiovascular: negative: chest pain, palpitations, orthopnea, paroxysmal nocturnal dyspnea, edema, light headedness, other Gastrointestinal: negative: Nausea, Vomiting, Abdominal Pain, Diarrhea, Constipation, Melena, Hematochezia, Other Genitourinary: negative: Dysuria, Frequency, Incontinence, Hematuria, Retention , Other Musculoskeletal: negative: Neck Pain, Shoulder Pain, Arm Pain, Back Pain, Hand Pain, Leg Pain, Foot Pain, Other Neurological: negative: Weakness, Numbness, Incoordination, Change in Speech, Confusion, Seizures, Other - Medications/Allergies Allergies/Adverse Reactions: Allergies Allergy/AdvReac Type Severity Reaction Status Date / Time amoxicillin [From Amoxil] Allergy Verified 04/03/19 00:11 butalbital [From Fiorinal] Allergy Verified 04/03/19 00:11 carvedilol [From Coreg] Allergy Verified 04/03/19 00:11 chlorthalidone Allergy Verified 04/03/19 00:11 citalopram [From Celexa] Allergy Verified 04/03/19 00:11 codeine Allergy Verified 04/03/19 00:11 erythromycin base Allergy Verified 04/03/19 00:11 metronidazole Allergy Verified 04/03/19 00:11 morphine Allergy Verified 04/03/19 00:11 paroxetine [From Paxil] Allergy Verified 04/03/19 00:11 penicillin V [From Pen-Vee K] Allergy Verified 04/03/19 00:11 TUSS-ORNADE Allergy Uncoded 04/03/19 00:11 Medications: Current Medications Acetaminophen (Tylenol) 1,000 mg PO Q6H PRN PRN Reason: Mild Pain (1-3) Albuterol/Ipratropium (Duoneb) 3 ml NEB [id number] [facility] Last Admin: 04/05/19 14:14 Dose: 3 ml Amlodipine Besylate (Norvasc) 10 mg PO [facility] Last Admin: 04/04/19 20:59 Dose: Not Given Ascorbic Acid (Vitamin C) 500 mg PO [facility] Last Admin: 04/04/19 20:59 Dose: Not Given Atenolol (Tenormin) 50 mg PO [facility] Last Admin: 04/04/19 20:59 Dose: Not Given Atorvastatin Calcium (Lipitor) 40 mg PO [facility] Benazepril HCl (Lotensin) 20 mg PO [facility] Last Admin: 04/04/19 20:59 Dose: Not Given Famotidine (Pepcid) 20 mg PO DAILY [facility] Last Admin: 04/05/19 09:00 Dose: 20 mg Guaifenesin (Mucinex) 600 mg PO Q12HR [facility] Hydralazine HCl (Apresoline) 10 mg SLOW IVP Q4H PRN PRN Reason: SBP > 180 and HR < 70 Levofloxacin 750 mg/ Device 150 mls @ 100 mls/hr IVPB Q24HR [facility] Last Admin: 04/04/19 23:59 Dose: 150 mls Mirtazapine (Remeron) 15 mg PO [facility] Last Admin: 04/04/19 21:00 Dose: 15 mg Multivitamins (Theragran) 1 tab PO [facility] Last Admin: 04/04/19 21:01 Dose: Not Given Ondansetron HCl (Zofran Odt) 4 mg PO Q6H PRN PRN Reason: Nausea/Vomiting Ondansetron HCl (Zofran) 4 mg IVP Q6H PRN PRN Reason: Nausea/Vomiting Prednisone (Prednisone) 40 mg PO QA-[facility] Stop: 04/07/19 08:01 Last Admin: 04/05/19 09:00 Dose: 40 mg
[2019-04-05 16:34] LABS: Bilirubin Negative (Negative); Blood, Urine Negative (Negative); Clarity CLEAR (Clear); Glucose, Urine (Dipstick) Negative (Negative); Leukocyte Negative (Negative); Nitrite Negative (Negative); Protein, Urine (Dipstick) Negative (Neg-Trace); Specific Gravity, Urine 1.039 (1.002-1.036); Urobilinogen 0.2 mg/dL (0.2-1.0); pH, Urine 5.5 (5.0-9.0)
[2019-04-05 16:36] LABS: Bacteria/HPF None Seen HPF (None Seen); Hyaline Casts/LPF 0-3 HYALINE CAST LPF (0-3 Hyaline); Pathc Cast-AUWi Flag 0.13 (0-2.49); Squamous Epithelial 0-3 HPF (0-3); WBC/HPF 0-3 HPF (0-3)
--- NOTE | 2019-04-05 17:52 | CT ---
CT THORAX WITH CONTRAST: 04/05/19 HISTORY: 78-year-old female with pleural effusion with atypical mesothelial cells. COMPARISON: No prior chest CTs available. TECHNIQUE: IV iodinated contrast media: 70 mL Isovue 370. FINDINGS: There is a posteriorly layering, dependent, left pleural effusion which occupies approximately 30% vo lume of the left hemithoracic cavity. There is no pleural effusion on the right side. At the lateral base of the left lower lobe, there is a focal moderate sized consolidation with some air bronchogram. This involves the left lateral costophrenic angle and is wedge shaped. At the right anterior lower lung zone, there is a moderate sized, broadly pleural based consolidation with chronic appearing air bronchogram that has traction bronchiectasis. One component broadly abuts the right anterior and anterolateral pleural surface, while the other abuts the right cardiac border . This is entirely in the right middle lobe. Contiguous with this, there are streaky and lace-like pulmonary densities in the adjacent portions of the right middle lobe and anterior segment of right upper lobe. Similar but smaller such findings at the anterior segment of the left upper lobe with broad based, thin, density along the left anterior pleural surface. Biapical bullae, surrounded by irregular soft tissue density material. No pneumothorax. Trachea and b ilateral major bronchi are patent and clear. Atherosclerotic calcification but no aneurysm of thoraci c aorta. No cardiomegaly or pericardial effusion. No significant mediastinal or hilar lymphadenopathy . S-shaped scoliosis of thoracolumbar spine. Primary levoscoliotic curvature of lumbar spine. IMPRESSION: 1. Small to moderate sized left pleural effusion. 2. Moderate sized consolidation at the lateral basilar segment of the left lower lobe, which cou ld represent pneumonia. 3. Moderate sized consolidation at right middle lobe, broadly abutting the anterior pleural surf thee and right heart border. Presence of traction bronchiectasis within air bronchogram of this sugges ts that this may be chronic consolidation. 4. Streaky, lace-like pulmonary densities in the adjacent portions of right middle lobe and righ t upper lobe. 5. S-shaped scoliosis of thoracolumbar spine. CATHERINE Sneed POS: [facility]
--- NOTE | 2019-04-06 08:26 | PRG ---
DATE OF SERVICE: 04/05/2019 SUBJECTIVE: The patient is seen and examined, seems to be feeling much better with remarkable improvement in the sodium level, noted with the following vital signs. OBJECTIVE: VITAL SIGNS: Afebrile. Temperature 98.7, pulse 93, respiratory rate of 18, O2 saturations 90% with blood pressure 107/51. HEENT: Unremarkable. CARDIOVASCULAR: First and second heart sounds were heard. RESPIRATORY SYSTEM: Clear to auscultation anteriorly. DIGESTIVE SYSTEM: Revealed a benign abdomen. EXTREMITIES: No peripheral edema. LABORATORY INVESTIGATION: Showed a sodium that went up to 133. 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 PLAN: 1. We will continue with increased protein intake as well as a limited amount of free water. 2. Further management to be dependent on the clinical course. Job ID: [id number]
[2019-04-06] MEDS: Famotidine 20 MG TAB PO SCH (09:52)
[2019-04-06] MEDS: guaiFENesin ER 600 MG TAB PO SCH ×2 (09:52→10:06)
[2019-04-06] MEDS: predniSONE 20 MG TAB PO SCH (09:52)
[2019-04-06] MEDS: Atenolol 50 MG TAB PO SCH (10:05)
[2019-04-06] MEDS: Amlodipine 10 MG TAB PO SCH (10:05)
[2019-04-06] MEDS: Ascorbic Acid 500 mg Chewable Tablet PO SCH (10:05)
[2019-04-06] MEDS: Mirtazapine 15 MG TAB PO SCH (10:06)
[2019-04-06] MEDS: Multivit, Therapeutic 1 TAB PO SCH (10:06)
--- NOTE | 2019-04-06 11:49 | PDOC.PN ---
- Subjective Encounter Start Date: 04/06/19 Encounter Start Time: 11:47 Subjective: feels a little weak today per daughter -: pt wants to go home -: o2 sats were lower at 89% earlier today per RN - Objective Resuscitation Status - Order Detail: 04/03/19 01:39 Resuscitation Status Routine Resuscitation Status: DNAR: NO Resuscitation Discussed with: Confirmed with patient MAR Reviewed: Yes Vital Signs & Weight: Vital Signs (12 hours) Temp Pulse Resp BP Pulse Ox 04/06/19 08:00 99.3 F 115 H 18 125/56 L 93 L 04/06/19 06:52 89 16 89 L Weight Weight 139 lb I&O: 04/05/19 04/06/19 04/07/19 06:59 06:59 06:59 Intake Total 1380 720 Output Total 1550 865 Balance -170 -145 Result Diagrams: 04/05/19 04:11 04/05/19 04:11 Additional Labs: Microbiology 04/03/19 11:35 Pleural fluid Acid Fast Bacilli Smear - Final 04/03/19 11:35 Pleural fluid Body Fluid Culture - Preliminary 04/03/19 02:19 Venous blood - Right Arm Blood Culture - Preliminary NO GROWTH AT 48 HOURS 04/03/19 02:12 Venous blood - Right Arm Blood Culture - Preliminary NO GROWTH AT 48 HOURS Radiology Reviewed by me: Yes (CT chest-dense consolidation RML and LLL) Phys Exam - Physical Examination Constitutional: NAD HEENT: PERRLA, moist MMs, sclera anicteric, oral pharynx no lesions Neck: no nodes, no JVD, supple, full ROM Respiratory: no wheezing, no rhonchi, clear to auscultation bilateral few rales left lung base but better air movement Cardiovascular: RRR, no significant murmur Gastrointestinal: soft, non-tender, no distention, positive bowel sounds Musculoskeletal: no edema, pulses present Neurological: non-focal, normal sensation, moves all 4 limbs Psychiatric: normal affect, A&O x 3 Skin: no rash Dx/Plan (1) PNA (pneumonia) Code(s): J18.9 - PNEUMONIA, UNSPECIFIED ORGANISM Status: Acute Qualifiers: Pneumonia type: due to unspecified organism Laterality: bilateral Comment: empiric IV ABx. (2) Pleural effusion Code(s): J90 - PLEURAL EFFUSION, NOT ELSEWHERE CLASSIFIED Status: Acute Comment: follow fluid Cx and Cell pathology results.mesothelial cell predominant so far. (3) Hyponatremia Code(s): E87.1 - HYPO-OSMOLALITY AND HYPONATREMIA Status: Acute Comment: joe SIADH from Lung process.1 dose Tolvaptan yesterday.fluid restriction.monitor. improved.133 today (4) SIRS (systemic inflammatory response syndrome) Code(s): R65.10 - SIRS OF NON-INFECTIOUS ORIGIN W/O ACUTE ORGAN DYSFUNCTION Status: Acute Comment: no evidence of sepsis (5) LFT elevation Code(s): R94.5 - ABNORMAL RESULTS OF LIVER FUNCTION STUDIES Status: Acute Comment: joe due to passive hepatic congestion.Abd US does not shwo anything acute (6) ac hypoxic respiratory failure Status: Resolved Comment: Due to #2.and may be COPD and PNA.Better after thoracentesis.ConT prednisone,IV Abx - Plan plan discussed w/ family, continue antibiotics, respiratory therapy, incentive spirometry, out of bed/ambulate, DVT proph w/SCDs awaiting final path results but O/W pt clinically better -: check O2 sats throughtout the day.was lower in morning -: will wait for final Pulmonary recs.may DC on PO Abx w close Pulm f/u -: will repeat CT in next few weeks to see resolution of consolidation lungs -: monitor for now.Meds were held d/t low BP so tachy this am * .hold JESÚS-I but continue BB * change amlodipine to AM as pt getting 3 antihypertensives at once at night dropping BP Review of Systems - Review of Systems Constitutional: negative: fever, chills, sweats, weakness, malaise, other ENT: negative: Ear Pain, Ear Discharge, Nose Pain, Nose Discharge, Nose Congestion, Mouth Pain, Mouth Swelling, Throat Pain, Throat Swelling, Other Respiratory: negative: Cough, Dry, Shortness of Breath, Hemoptysis, SOB with Excertion, Pleuritic Pain, Sputum, Wheezing Cardiovascular: negative: chest pain, palpitations, orthopnea, paroxysmal nocturnal dyspnea, edema, light headedness, other Gastrointestinal: negative: Nausea, Vomiting, Abdominal Pain, Diarrhea, Constipation, Melena, Hematochezia, Other Genitourinary: negative: Dysuria, Frequency, Incontinence, Hematuria, Retention , Other Musculoskeletal: negative: Neck Pain, Shoulder Pain, Arm Pain, Back Pain, Hand Pain, Leg Pain, Foot Pain, Other Neurological: negative: Weakness, Numbness, Incoordination, Change in Speech, Confusion, Seizures, Other - Medications/Allergies Allergies/Adverse Reactions: Allergies Allergy/AdvReac Type Severity Reaction Status Date / Time amoxicillin [From Amoxil] Allergy Verified 04/03/19 00:11 butalbital [From Fiorinal] Allergy Verified 04/03/19 00:11 carvedilol [From Coreg] Allergy Verified 04/03/19 00:11 chlorthalidone Allergy Verified 04/03/19 00:11 citalopram [From Celexa] Allergy Verified 04/03/19 00:11 codeine Allergy Verified 04/03/19 00:11 erythromycin base Allergy Verified 04/03/19 00:11 metronidazole Allergy Verified 04/03/19 00:11 morphine Allergy Verified 04/03/19 00:11 paroxetine [From Paxil] Allergy Verified 04/03/19 00:11 penicillin V [From Pen-Vee K] Allergy Verified 04/03/19 00:11 TUSS-ORNADE Allergy Uncoded 04/03/19 00:11 Medications: Current Medications Acetaminophen (Tylenol) 1,000 mg PO Q6H PRN PRN Reason: Mild Pain (1-3) Albuterol/Ipratropium (Duoneb) 3 ml NEB [id number] [facility] Last Admin: 04/06/19 11:24 Dose: 3 ml Amlodipine Besylate (Norvasc) 10 mg PO [facility] Last Admin: 04/06/19 10:05 Dose: Not Given Ascorbic Acid (Vitamin C) 500 mg PO [facility] Last Admin: 04/06/19 10:05 Dose: Not Given Atenolol (Tenormin) 50 mg PO [facility] Last Admin: 04/06/19 10:05 Dose: Not Given Atorvastatin Calcium (Lipitor) 40 mg PO [facility] Last Admin: 04/06/19 10:05 Dose: Not Given Benazepril HCl (Lotensin) 20 mg PO [facility] Famotidine (Pepcid) 20 mg PO DAILY [facility] Last Admin: 04/06/19 09:52 Dose: 20 mg Guaifenesin (Mucinex) 600 mg PO Q12HR [facility] Last Admin: 04/06/19 10:06 Dose: Not Given Hydralazine HCl (Apresoline) 10 mg SLOW IVP Q4H PRN PRN Reason: SBP > 180 and HR < 70 Levofloxacin 750 mg/ Device 150 mls @ 100 mls/hr IVPB Q24HR [facility] Last Admin: 04/06/19 10:06 Dose: Not Given Mirtazapine (Remeron) 15 mg PO [facility] Last Admin: 04/06/19 10:06 Dose: Not Given Multivitamins (Theragran) 1 tab PO [facility] Last Admin: 04/06/19 10:06 Dose: Not Given Ondansetron HCl (Zofran Odt) 4 mg PO Q6H PRN PRN Reason: Nausea/Vomiting Ondansetron HCl (Zofran) 4 mg IVP Q6H PRN PRN Reason: Nausea/Vomiting Prednisone (Prednisone) 40 mg PO [facility] Stop: 04/07/19 08:01 Last Admin: 04/06/19 09:52 Dose: 40 mg
[2019-04-06 12:58] VITALS: BP 120/58; TEMP 98.7
[2019-04-06 17:13] LABS: Anion Gap 11 mmol/L (10-20); BUN (Urea Nitrogen) 26 mg/dL (9.8-20.1); Calc. Creatinine Clearance 45 mL/min (70-130); Calcium 8.5 mg/dL (7.8-10.44); Carbon Dioxide 24 mmol/L (23-31); Chloride 100 mmol/L (98-107); Estimated GFR-MDRD 51; Glucose 107 mg/dL (83-110); Potassium 3.9 mmol/L (3.5-5.1); Sodium 131 mmol/L (136-145)
[2019-04-06 17:31] LABS: White Blood Cell (WBC) Count 14.6 thou/uL (4.8-10.8)
[2019-04-06 17:32] LABS: #Lymphocytes 1.4 thou/uL (1.20-3.40); #Monocytes 0.7 thou/uL (0.11-0.59); #Neutrophils 12.5 thou/uL (1.40-6.50); %Basophils 0.2 % (0.0-1.0); %Eosinophils 0.2 % (0.0-10.0); %Lymphocytes 9.5 % (21.0-51.0); %Monocytes 4.5 % (0.0-10.0); %Neutrophils 85.7 % (42.0-75.0); Hemoglobin 9.3 g/dL (12.0-16.0); Mean Corpuscular Hemoglobin 28.9 pg (27.0-31.0); Mean Corpuscular Volume 90.3 fL (78.0-98.0); Mean Platelet Volume 6.3 fL (7.4-10.4); Platelet Count 478 thou/uL (130-400); RBC Distribution Width 15.3 % (11.5-14.5); Red Blood Cell (RBC) Count 3.23 mill/uL (4.20-5.40)
--- NOTE | 2019-04-06 18:59 | PRG ---
DATE OF SERVICE: 04/06/2019 SUBJECTIVE: The patient is seen and examined. OBJECTIVE: VITAL SIGNS: Noted with the following vital signs; afebrile, temperature pulse 97, respiratory rate of 16, O2 saturations of 93% with blood pressure 120/58. HEENT: Unremarkable. Moist oral mucosa. No conjunctival injection or icterus. NECK: Supple. CARDIOVASCULAR: First and second heart sounds were heard. RESPIRATORY: Clear to auscultation. DIGESTIVE: Revealed a benign abdomen. EXTREMITIES: No peripheral edema. SKIN: No new gross rash. LYMPHATICS: No peripheral lymphadenopathy. LABORATORY INVESTIGATION: Showed a creatinine of 1.05, sodium of 131. 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 PLAN: 1. Continue with high protein intake. 2. Restrict free water intake. 3. Outpatient Nephrology followup to re-evaluate the chemistry strongly recommended. Job ID: [id number]
--- NOTE | 2019-04-07 04:45 | DIS ---
DATE OF ADMISSION: 04/02/2019 DATE OF DISCHARGE: 04/06/2019 CONDITION: At the time of discharge, stable and improved. PRIMARY CARE PHYSICIAN: Dr. Deepali Lagunas. DISCHARGE DISPOSITION: Home. DISCHARGE DIAGNOSES: 1. Bilateral pneumonia. 2. Significant left-sided pleural effusion, status post left-sided thoracentesis. 3. Hyponatremia, suspected syndrome of inappropriate antidiuretic hormone. 4. Systemic inflammatory response syndrome without sepsis. 5. LFT elevation secondary to passive hepatic congestion. 6. Acute hypoxic respiratory failure on presentation, which has now resolved. IN-HOUSE CONSULTATION: 1. Nephrology, Dr. Godoy. 2. Pulmonary Medicine, Dr. Rodrigues. PROCEDURES DONE IN THE HOSPITAL: 1. Chest x-ray upon presentation which showed moderate-size left-sided pleural effusion. 2. Abdominal ultrasound which is negative for any acute changes. 3. Thoracentesis of the left side on 04/03/2019, by Dr. Rodrigues which showed a weak exudate with mesothelial prominent cell population. The cytology and pathology of the pleural fluid shows mesothelial proliferation, favorably benign. 4. Transthoracic echocardiogram which is essentially unremarkable without any evidence of systolic or diastolic cardiac dysfunction. EF is 55% to 60%. 5. CT scan of the chest on 04/05/2019, which once again shows bibasilar opacification with moderate size consolidation of lateral basilar segment of the left lower lobe and moderate size consolidation of the right middle lobe with some remnant of the left pleural effusion. DISCHARGE MEDICATIONS: 1. Levofloxacin 750 mg p.o. daily for 7 more days. 2. Florastor 250 mg daily. 3. Medrol Dosepak. Resume home medications as follows; 1. Amlodipine 10 mg daily. The patient is instructed to change it to morning versus night. 2. Tenormin 50 mg at bedtime. 3. Atorvastatin 40 mg daily. 4. Benazepril 20 mg daily. 5. Mirtazapine 15 mg daily. 6. Multivitamin daily. HISTORY OF PRESENTING ILLNESS: Ms. Sadler is a pleasant 78-year-old female with past medical history of hypertension, dyslipidemia, and depression, who presented to the emergency room at [facility] with complaints of 2 days history of shortness of breath, fever, and cough. She had positive sick contacts in the form of her . She was found to be significantly hypoxic on presentation with 83% saturation on room air. In the ER, she was found to have left-sided pleural effusion and was treated with nebulizer and antibiotics, and was admitted to telemetry unit for further evaluation. Please see admission history and physical dictated by Dr. Kapadia on 04/03/2019, for full details. HOSPITAL COURSE: Because of the patient's pleural effusion, Pulmonary Medicine was consulted and Dr. Rodrigues saw the patient. Two-view chest x-ray confirmed the finding of left-sided pleural effusion. Dr. Rodrigues did a thoracentesis and the cytology of the fluid came back benign. The cultures by the time of discharge for pleural fluid were also negative and the AFB smear was negative with the AFB culture pending. She had significant improvement in her hypoxia and respiratory distress after the thoracentesis and was monitored throughout the length of stay by Dr. Rodrigues. A chest CT was done which confirmed the finding of bilateral consolidations, suspected pneumonia. She was treated with empiric IV antibiotic and then later oral steroids, which she will finish in the outpatient setting. At this time, there is a small concern of malignancy because of dense consolidation. She will follow up with Dr. Rodrigues in the clinic for outpatient chest x-ray or CT scan based on her symptoms and will return emergently to emergency room if her symptoms worsen prior to that. She was also found to have elevated BNP and somewhat elevated liver enzymes with AST 74, ALT 76, and alkaline phosphatase at 226 upon presentation with normal troponin. Her BNP was over 500. For this reason, echocardiogram and abdominal ultrasound were done which were both unremarkable. She was also hyponatremic upon presentation with a sodium of 127 and Nephrology was consulted. Dr. King saw the patient and she had received one dose of tolvaptan as well as free water restriction which helped improve her sodium numbers to 133. She will continue the fluid restriction at home and will follow up with Dr. Godoy in the outpatient setting. As of this morning, the patient is saturating 93% on room air and is eager to go home and has been cleared by Dr. Rodrigues for discharge as well. She was seen and examined prior to discharge by myself. PHYSICAL EXAMINATION: This morning, VITAL SIGNS: Temperature 98.7, saturating 93% on room air, blood pressure 120/58. GENERAL: No acute distress. CHEST: Clear to auscultation with few left-sided basilar rales. HEART: Rate and rhythm, regular. DISCHARGE PLAN: Discharge plan was discussed with the patient and her daughter at bedside and they verbalized understanding. TIME SPENT: Total time spent in the discharge, 35 minutes. Job ID: [id number]
[2019-04-07] MEDS ORDERED: Amlodipine 10 MG TAB PO SCH (09:00)
--- NOTE | 2019-04-07 09:16 | PRG ---
DATE OF SERVICE: 04/06/2019 SERVICE: Pulmonary Medicine. INTERVAL HISTORY: The patient is doing fine from a respiratory standpoint. Denies any current chest pain, fevers, chills, nausea, or vomiting. She had a CT of the chest yesterday, which I reviewed with her. Otherwise, there has been no interval change to her condition. PHYSICAL EXAMINATION: VITAL SIGNS: Afebrile, pulse 95, blood pressure 120/58, respirations 18, and saturation 93% on room air. GENERAL: The patient is awake and alert, in no apparent distress. LUNGS: Decent air entry on the right. There is a little bit decreased air entry on the left base. No prolonged expiratory phase, wheezing, or crackles are appreciated today. HEART: Normal rate, regular. ABDOMEN: Soft, nontender, and nondistended. Bowel sounds are positive. MUSCULOSKELETAL: No cyanosis or clubbing. There is no pitting in bilateral lower extremities. NEUROLOGIC: Grossly nonfocal. LABORATORY DATA: WBC 14.6, hemoglobin 9.3, and platelets 478,000. Sodium 131. Basic metabolic profile is otherwise unremarkable. Creatinine 1.05 and stable. Urinalysis is unremarkable. There is no proteinuria or red blood cells present. All culture results remain negative to date. IMAGING DATA: CT of the chest demonstrates a left lower lobe infiltrate. There is also pleural effusion, which is simple and layering. I see absolutely no evidence of pleural involvement on the basis of the CT scan. ASSESSMENT: 1. Acute hypoxic respiratory failure, resolved. 2. Pleural effusion on the left, status post thoracentesis demonstrating a weak exudate, cytology currently negative. A nonhematologic cells predominates though eosinophils played a major role in the fluid even after the steroids were administered. 3. Community-acquired pneumonia. 4. Chronic obstructive pulmonary disease secondary to volume overload. 5. Emphysema based on CT scan. 6. Sepsis, resolved. DISCUSSION AND PLAN: The fluid that I pulled off the lung did not have characteristics of parapneumonic effusion. It is not clear what this is. We are going to give her a 14-day course of steroids, and a 7-day course of antibiotic. I will have her return to clinic in 2 to 3 weeks in the outpatient setting with a repeat chest x-ray. If she gets worse between now and then, I have asked for her to return immediately to the emergency department for additional diagnostic evaluation. The patient has appreciation for the idea that we do not exactly know what is going on. Our suspicion is that she has a community-acquired pneumonia, which hit her in a volume overloaded state. She will continue to restrict fluid and salt through time. If there is still a collection of fluid on the chest x-ray at her followup appointment, repeat thoracentesis, CT, and bronchoscopy will be considered. Job ID: [id number]
--- NOTE | 2019-04-08 10:29 | EKG ---
Test Reason : Blood Pressure : / mmHG Vent. Rate : 092 BPM Atrial Rate : 092 BPM P-R Int : 128 ms QRS Dur : 130 ms QT Int : 366 ms P-R-T Axes : 034 -56 005 degrees QTc Int : 452 ms Normal sinus rhythm Right bundle branch block Left anterior fascicular block Bifascicular block Possible Lateral infarct , age undetermined Abnormal ECG Confirmed by LÁZARO HI M.D. ([id number]), loan expeditor CRISTOBAL BROOKS ([id number]) on 04/08/2019 10:29:24 AM Referred By: Confirmed By:LÁZARO HI M.D.
== END 2019-04-06 16:00 | disposition home or self-care (01) | DRG 186 ==
LOC: ERS 20:01 → 2NO 23:21
PROVIDERS: ADMIT Family Medicine; ATTEND Family Medicine
PROC: 0W9B3ZZ Drainage of Left Pleural Cavity, Percutaneous Approach (ICD-10-PCS; principal; 2019-04-03)
DX: J90 Pleural effusion, not elsewhere classified (principal); J18.9 Pneumonia, unspecified organism; J96.01 Acute respiratory failure with hypoxia; E22.2 Syndrome of inappropriate secretion of antidiuretic hormone; R65.10 Systemic inflammatory response syndrome (SIRS) of non-infectious origin without acute organ dysfunction; Z66 Do not resuscitate; I10 Essential (primary) hypertension; E78.00 Pure hypercholesterolemia, unspecified; F32.9 Major depressive disorder, single episode, unspecified; E87.6 Hypokalemia; K76.1 Chronic passive congestion of liver; E87.70 Fluid overload, unspecified; Z79.899 Other long term (current) drug therapy; Z88.8 Allergy status to other drugs, medicaments and biological substances; Z88.2 Allergy status to sulfonamides; Z88.1 Allergy status to other antibiotic agents; Z88.0 Allergy status to penicillin; J43.9 Emphysema, unspecified
CPT/HCPCS: 36415; 71045; 71046; 71260; 76700; 80048; 80053; 81001; 82805; 82945; 83605; 83615; 83880; 83935; 83986; 84157; 84300; 84484; 85007; 85025; 85027; 85060; 87040; 87070; 87116; 87205; 87206; 88112; 88305; 88341; 88342; 89051; 93005; 93306; 94640; 94760; J1940; J1956; J2920; J7512; J7611; J7620

== ENCOUNTER 2019-04-17 09:10 | Outpatient (CLI) | payer MEDICARE ==
--- NOTE | 2019-04-17 09:26 | RAD ---
Exam: Chest 2 views: HISTORY: Dyspnea COMPARISON: 04/05/2019 Moderately large left pleural effusion increasing in size from prior study. Surgical clips overlie th e left axilla. Biapical pleural thickening more prominent and more nodular in the left apex. Minimal patchy parenchymal changes in the right lower lobe and costophrenic angle region. Bony demine ralization with vertical height loss of several thoracic vertebral bodies, stable. IMPRESSION: Increasing left pleural effusion, otherwise overall stable changes.
== END 2019-04-17 09:11 | disposition home or self-care (01) ==
LOC: RAD 09:10
PROVIDERS: ATTEND Internal Medicine
DX: R06.00 Dyspnea, unspecified (principal); J90 Pleural effusion, not elsewhere classified
CPT/HCPCS: 71046

== ENCOUNTER 2019-04-18 11:05 | Day surgery (SDC) | payer MEDICARE ==
[2019-04-18 14:23] LABS: Fluid, Triglycerides 25 mg/dL (Not Available); Pleural Fluid, Amylase Less than 30 U/L (Not Available); Pleural Fluid, Glucose 96 mg/dL; Pleural Fluid, LDH 108 U/L (Not Available); Pleural Fluid, Protein 2.3 g/dL
[2019-04-18 14:33] LABS: Ref Lab Test Ordered ADA PLEURAL; Reference Lab Name LABCORP
[2019-04-18 14:50] LABS: BF Color Yellow; BF RBC Count - Manual 133 /cumm; Body Fluid Source Pleural Fluid; Clarity Hazy (Clear); RBC Background Count 0.006; Tube # EDTA; WBC/NonHematic-Auto 234 /cumm
[2019-04-18 14:56] LABS: BF Segmented Neutrophils 8 %; Cell Count Non Hematic 77 %; Lymphocytes 15 %
--- NOTE | 2019-04-18 16:08 | OP ---
DATE OF PROCEDURE: 04/18/2019 SERVICE: Pulmonary Medicine. PROCEDURE PERFORMED: Left-sided thoracentesis under ultrasound guidance. CONSENT: The risks and benefits of the procedure were discussed with the patient at bedside. All questions were answered and alternative options explained. MEDICATIONS USED: Lidocaine 1% without epinephrine, 10 mL. PREOPERATIVE DIAGNOSIS: Pleural effusion. POSTPROCEDURE DIAGNOSIS: Pleural effusion. DESCRIPTION OF PROCEDURE: Time-out was performed by the procedure team and the patient. The patient was positively identified using name and date of . The procedure site was marked. Vital sign monitoring was accomplished by noninvasive hemodynamic monitoring, pulse oximetry, and telemetry. In the seated position, the left posterior hemothorax was examined using an ultrasound probe. The diaphragm and pleural fluid were easily identified. The skin was prepped and draped in the sterile fashion and anesthetized with 1% lidocaine without epinephrine. A Finder needle was inserted in the pleural space with return of increasingly clear yellow pleural fluid. A pleural drainage catheter was inserted in the same location. A total quantity of 1700 mL of the same fluid was withdrawn by syringe pump technique. A large sample at this time was sent for analysis. Evacuation of fluid was terminated because the fluid stopped coming. At the end of the procedure, estimated pressures, measured by manometry, was -22 cm of pleural fluid. The intact catheter was withdrawn on exhalation and a sterile dressing was applied. The patient has stable vitals throughout the entire procedure. ESTIMATED BLOOD LOSS: 1 mL. COMPLICATIONS: None. Job ID: [id number]
== END 2019-04-18 12:55 | disposition home or self-care (01) ==
LOC: SDC 11:05
PROVIDERS: ATTEND Internal Medicine
PROC: 0W9B30Z Drainage of Left Pleural Cavity with Drainage Device, Percutaneous Approach (ICD-10-PCS; principal; 2019-04-18)
DX: J90 Pleural effusion, not elsewhere classified (principal); Z88.0 Allergy status to penicillin; Z88.5 Allergy status to narcotic agent; Z88.1 Allergy status to other antibiotic agents; Z88.8 Allergy status to other drugs, medicaments and biological substances; Z79.899 Other long term (current) drug therapy
CPT/HCPCS: 32554; 82150; 82945; 83615; 83986; 84157; 84478; 85060; 87070; 87116; 87205; 87206; 88112; 88305; 89051

== ENCOUNTER 2019-05-02 10:24 | Outpatient (CLI) | payer MEDICARE ==
--- NOTE | 2019-05-02 11:28 | RAD ---
XR Chest Pa Lat STANDARD HISTORY: Pleural effusion follow-up COMPARISON: 04/05/2019 and 04/17/2019 exams. FINDINGS: Heart size appears borderline. Scoliotic change of the spine. Parenchymal changes in the ri ght base and pleural and parenchymal changes in the left base are again noted. A left-sided pleural changes have slightly reduced. Surgical clips are seen in the left axilla. IMPRESSION: Improving left pleural effusion.
--- NOTE | 2019-05-02 12:31 | ULT ---
ULTRASOUND BILATERAL LOWER EXTREMITIES WITH DOPPLER DUPLEX: CPT: 57054 ICD-10-PCS: B54D INDICATIONS: Pain and edema. TECHNIQUE: Color-flow Doppler, spectral wave-form analysis of pulsed Doppler, and magdaleno-scale imaging with compre ssion and augmentation were used to evaluate the bilateral common femoral, femoral, popliteal, elementary art teacher ior tibial, superficial femoral veins, and the proximal portions of the profunda femoral and greater saphenous veins. FINDINGS: There is appropriate compressibility and flow within the imaged deep venous system of the bilateral l ower extremities. IMPRESSION: No deep venous thrombosis. POS: C
== END 2019-05-02 10:25 | disposition home or self-care (01) ==
LOC: ULT 10:24
PROVIDERS: ATTEND Internal Medicine
DX: M79.89 Other specified soft tissue disorders (principal); R60.0 Localized edema; J90 Pleural effusion, not elsewhere classified
CPT/HCPCS: 71046; 93970

== ENCOUNTER 2019-05-19 11:53 | Outpatient (CLI) | payer MEDICARE ==
--- NOTE | 2019-05-19 12:18 | RAD ---
RADIOGRAPH CHEST 2 VIEWS: Date: 05/19/19 Time: 1209 hours HISTORY: 78-year-old female follow-up pleural effusion. COMPARISON: 04/17/19. FINDINGS: Left pleural effusion causes dense opacification of lower third of left lung. No pulmonary edema, car diomegaly, right pleural effusion, or pneumothorax. Right lung relatively clear. No interval change. IMPRESSION: 1. No interval change in the moderate size left pleural effusion. 2. S-shaped scoliosis. JN [] POS: CET
== END 2019-05-19 11:54 | disposition home or self-care (01) ==
LOC: RAD 11:53
PROVIDERS: ATTEND Internal Medicine
DX: R06.00 Dyspnea, unspecified (principal); J90 Pleural effusion, not elsewhere classified; M41.9 Scoliosis, unspecified
CPT/HCPCS: 71046

== ENCOUNTER 2019-06-07 13:51 | Outpatient (CLI) | payer MEDICARE ==
[2019-06-07 16:52] LABS: Hemoglobin 12.5 g/dL (12.0-16.0); Mean Corpuscular HGB CONC 33.3 g/dL (32.0-36.0); Mean Corpuscular Hemoglobin 29.4 pg (27.0-31.0); Mean Corpuscular Volume 88.2 fL (78.0-98.0); Mean Platelet Volume 7.4 fL (7.4-10.4); Platelet Count 286 thou/uL (130-400); RBC Distribution Width 14.5 % (11.5-14.5); Red Blood Cell (RBC) Count 4.26 mill/uL (4.20-5.40); White Blood Cell (WBC) Count 10.5 thou/uL (4.8-10.8)
[2019-06-07 17:25] LABS: Anion Gap 13 mmol/L (10-20); BUN (Urea Nitrogen) 9 mg/dL (9.8-20.1); Calc. Creatinine Clearance 0 mL/min (70-130); Calcium 9.1 mg/dL (7.8-10.44); Carbon Dioxide 24 mmol/L (23-31); Chloride 99 mmol/L (98-107); Estimated GFR-MDRD 57; Glucose 106 mg/dL (83-110); Potassium 4.3 mmol/L (3.5-5.1); Sodium 132 mmol/L (136-145)
== END 2019-06-07 13:52 | disposition home or self-care (01) ==
LOC: LABBT 13:51
PROVIDERS: ATTEND Thoracic Surgery (Cardiothoracic Vascular Surgery)
DX: Z01.818 Encounter for other preprocedural examination (principal); J90 Pleural effusion, not elsewhere classified
CPT/HCPCS: 80048; 85027; 93005; 93010

== ENCOUNTER 2019-06-07 15:15 | Inpatient (IN) | payer MEDICARE ==
[2019-06-08] MEDS ORDERED: Fentanyl 100 MCG/2 ML VIAL ONE (06:40)
[2019-06-08] MEDS ORDERED: Midazolam HCl 2 mg/2 ml Vial ONE (06:40)
[2019-06-08] MEDS ORDERED: Levofloxacin 500 mg/D5W 100 ml Premix Bag ONE (07:23)
[2019-06-08] MEDS ORDERED: Clindamycin/D5W 900 mg/50 ml Premix Bag ONE ×2 (07:23→14:19)
[2019-06-08] MEDS ORDERED: Bupivacaine HCl 0.5%/Epinephrine 1:200,000/PF 30 ml Vial ONE (08:04)
[2019-06-08] MEDS ORDERED: Bupivacaine PF 0.5% 30 ML VIAL ONE (08:05)
[2019-06-08] MEDS ORDERED: Ondansetron HCl/PF 4 MG/2 ML Vial IVP PRN (09:08)
[2019-06-08] MEDS ORDERED: Ondansetron PF 4 MG/2 ML Vial IVP PRN (09:13)
[2019-06-08] MEDS ORDERED: SUGAMMADEX SODIUM 200 MG/2 ML VIAL ONE (09:23)
--- NOTE | 2019-06-08 09:35 | RAD ---
Exam: Chest one view HISTORY:Status post thoracotomy Comparison: 04/02/2019 FINDINGS: Cardiac silhouette: Normal Aorta: Atherosclerosis of the aortic knob Pulmonary vessels: Normal Costophrenic angles: Small left-sided pleural effusion. LUNGS: Chronic changes in the lung parenchyma. There is a suture chain projecting over the left lung base. Left-sided chest tube and left axillary surgical clips are noted. Pneumothorax: No pneumothorax. There is left apical thickening Osseous abnormalities: None IMPRESSION: 1. Left-sided chest tube. No pneumothorax. The left apical pleural thickening.
--- NOTE | 2019-06-08 11:11 | OP ---
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 POSTOPERATIVE DIAGNOSIS: Multiple pleural-based and parenchymal based nodules. PROCEDURE PERFORMED: Left thoracoscopy with pleural biopsy, wedge resection of left upper lobe, and mechanical pleurodesis. ANESTHESIA: General endotracheal-Dr. Zachary Fitzgerald. DRAIN: 24-Slovak chest tube x1. SPECIMENS: 1. Pleural fluid for cytology. 2. Left upper lobe wedge resection. 3. Pleura for routine pathologic exam. DESCRIPTION OF PROCEDURE: After consent was obtained, the patient was brought to the operating room, placed in supine position on the operating room table. Appropriate central line and monitors were placed and general endotracheal anesthesia was induced. The patient was placed in the right lateral decubitus position. Joints were appropriately padded. SCDs were used. Left chest wall was prepped and draped in usual sterile fashion. Three separate port incisions were made on the chest wall. Pleural fluid was evacuated. 1800 mL of clear yellow straw-colored fluid was evacuated. Specimen was sent for cytology. On inspection, the pleura had multiple small nodules. Two separate areas of fluoro were selected and franchise sales representative sample sent for pathologic exam. The lung parenchyma was also covered in these small nodules. Master Automotive Technician sample of the left upper lobe was resected with a wedge resection and sent for routine exam. The chest wall was then mechanically abraded. A 24-Slovak chest tube was placed through the anterior port to the apex and secured with silk suture. Lung was re-expanded and filled the chest cavity nicely. Wounds were injected with 0.5% Marcaine. 0.5% Marcaine intercostal block was also performed. Wounds were then closed in layers. Dermabond was applied to the skin. The patient was awakened, extubated, and transferred to the recovery room in stable condition. Needle, sponge, and instrument counts were all reported as correct. Job ID: [id number]
[2019-06-08] MEDS ORDERED: Lidocaine 1% PF 5 ML VIAL ONE (15:10)
[2019-06-08] MEDS ORDERED: Ketorolac Tromethamine 30 MG/ML VIAL ONE (15:10)
[2019-06-08] MEDS ORDERED: Rocuronium Bromide 10 MG/ML (10ML VIAL) ONE (15:10)
[2019-06-08] MEDS ORDERED: Hydrocortisone Sod Succ/PF 100 mg/2 ml Vial ONE (15:10)
[2019-06-08] MEDS ORDERED: PHENYLEPHRINE-NS 100 MCG/ML 10 ML SYRINGE ONE (15:10)
[2019-06-08] MEDS ORDERED: Glycopyrrolate 0.2 MG/ML 5 ML SYRINGE ONE (15:10)
[2019-06-08] MEDS ORDERED: Ondansetron PF 4 MG/2 ML Vial ONE (15:10)
[2019-06-08] MEDS ORDERED: PROPOFOL 200 MG/20 ML VIAL ONE (15:10)
[2019-06-08 15:48] VITALS: BMI 22.6
[2019-06-08] MEDS: traMADol HCl 50 MG TAB PO PRN (16:19)
[2019-06-08] MEDS: Clindamycin/D5W 900 MG in Premix Bag 1 BAG IVPB SCH ×2 (18:05→20:01)
[2019-06-08] MEDS: Amlodipine 10 MG TAB PO SCH (20:48)
[2019-06-08] MEDS: Atenolol 50 MG TAB PO SCH (20:48)
[2019-06-08] MEDS: Mirtazapine 15 MG TAB PO SCH (20:49)
[2019-06-08] MEDS: Atorvastatin Calcium 40 MG TAB PO SCH (20:49)
[2019-06-08] MEDS: Fentanyl 100 MCG/2 ML VIAL SLOW IVP PRN (22:43)
[2019-06-09] MEDS: Clindamycin/D5W 900 MG in Premix Bag 1 BAG IVPB SCH ×2 (01:03→05:21)
[2019-06-09] MEDS: Fentanyl 100 MCG/2 ML VIAL SLOW IVP PRN (04:28)
[2019-06-09] MEDS: traMADol HCl 50 MG TAB PO PRN ×3 (05:19→20:37)
[2019-06-09 06:27] LABS: #Lymphocytes 2.3 thou/uL (1.20-3.40); #Monocytes 0.7 thou/uL (0.11-0.59); #Neutrophils 6.4 thou/uL (1.40-6.50); %Basophils 0.2 % (0.0-1.0); %Eosinophils 0.4 % (0.0-10.0); %Lymphocytes 24.3 % (21.0-51.0); %Monocytes 7.5 % (0.0-10.0); %Neutrophils 67.6 % (42.0-75.0); Hemoglobin 10.1 g/dL (12.0-16.0); Mean Corpuscular HGB CONC 33.2 g/dL (32.0-36.0); Mean Corpuscular Hemoglobin 29.6 pg (27.0-31.0); Mean Platelet Volume 7.2 fL (7.4-10.4); Platelet Count 210 thou/uL (130-400); RBC Distribution Width 14.6 % (11.5-14.5); Red Blood Cell (RBC) Count 3.42 mill/uL (4.20-5.40); White Blood Cell (WBC) Count 9.5 thou/uL (4.8-10.8)
[2019-06-09 06:45] LABS: Anion Gap 11 mmol/L (10-20); BUN (Urea Nitrogen) 9 mg/dL (9.8-20.1); Calc. Creatinine Clearance 59 mL/min (70-130); Calcium 7.9 mg/dL (7.8-10.44); Carbon Dioxide 21 mmol/L (23-31); Chloride 101 mmol/L (98-107); Estimated GFR-MDRD 73; Glucose 91 mg/dL (83-110); Potassium 3.5 mmol/L (3.5-5.1); Sodium 129 mmol/L (136-145)
--- NOTE | 2019-06-09 07:51 | RAD ---
XR Chest 1 View Portable HISTORY: Thoracotomy COMPARISON: Previous day FINDINGS: The heart size normal. The aorta is tortuous. Left-sided chest tube remains in place. No pn eumothorax is seen. Surgical clips in the left axilla are again noted. Small bilateral pleural effusions are noted.
[2019-06-09] MEDS ORDERED: Potassium Chloride 20 MEQ TAB PO SCH (09:00)
[2019-06-09] MEDS ORDERED: Prevnar 13-Val Conj/PF 0.5 ML SYRINGE IM ONE (09:00)
--- NOTE | 2019-06-09 09:45 | CON ---
DATE OF CONSULTATION: 06/09/2019 SERVICE: Pulmonary Medicine. REASON FOR CONSULT: Status post thoracoscopy. HISTORY OF PRESENT ILLNESS: The patient is a very pleasant 78-year-old white female with past medical history significant for a pleural effusion. This was first identified back in March. She underwent a thoracentesis and at the time, the cytology was essentially unremarkable, but did have some atypical mesothelial cells. Because she had a lymphocyte-predominant effusion, we empirically put her on a little bit of steroids, but despite that, the effusion came back. I repeat a thoracentesis. On the second time around, the cells appeared a little bit more atypical. A second opinion was sent to [facility]. They suggested that they did not believe, it was malignancy, but could not exclude anything significant. I ended up getting a CT of the chest. There was some abnormal nodularity on the pleura. As such, she was sent for a thoracoscopy. Significant abnormalities were identified. Multiple biopsies are currently pending. She is postop day #1 from that elective case. She has no specific complaints of nausea or vomiting. She does have appropriate chest discomfort. It hurts when she coughs or takes a deep breath. Outside of that, she is doing quite remarkable in the immediate postop period. PAST MEDICAL HISTORY: 1. Major depressive disorder. 2. Dyslipidemia. 3. Hypertension. 4. Recurrent pleural effusion. PAST SURGICAL HISTORY: 1. Thoracoscopy. 2. Thoracentesis x2. FAMILY HISTORY: Noncontributory. SOCIAL HISTORY: Negative for alcohol, tobacco, or illicit drug use. She has no exposure to chemicals, dust, or tuberculosis. When she was a child, she used to throw asbestos cakes into the fire to watch them sparkle. ALLERGIES: NO KNOWN DRUG ALLERGIES. MEDICATIONS: List of the patient's inpatient medications were reviewed. No specific updates were made. REVIEW OF SYSTEMS: General, head, ears, eyes, nose, throat, cardiovascular, respiratory, GI, , musculoskeletal, neurologic, and skin are negative except as mentioned in the HPI. PHYSICAL EXAMINATION: VITAL SIGNS: Afebrile, pulse 77, blood pressure 96/52, respirations 23, and saturation is 93% on room air. GENERAL: The patient is awake and alert, in no apparent distress. LUNGS: Very good air entry on the right. There is improved air entry on the left. There are some rubs there. Minimal crackles are present. No rhonchi or wheezing appreciated. HEART: Normal rate and regular. ABDOMEN: Soft, nontender, and nondistended. Bowel sounds are positive. MUSCULOSKELETAL: No cyanosis or clubbing. No pitting in the bilateral lower extremities. NEUROLOGIC: Grossly nonfocal. IMAGING: Chest x-ray demonstrates findings of a recent thoracotomy. Chest tube is in place. She has good expansion of the bilateral lungs. There is a small pleural effusion on the right, which was not previously evaluated. The right effusion is new. ASSESSMENT: Pleural effusion on the left, status post left thoracoscopy and mechanical pleurodesis, postop day #1. DISCUSSION AND PLAN: Multiple biopsies are currently pending. I will involve Physical Therapy and give the patient a dose of Toradol. We will try to get her into the chair 3 to 4 times a day to prevent deconditioning. She will remain in the IMCU until a medical bed becomes available. Pulmonary/Critical Care will continue to follow along. Job ID: [id number] [facility]
[2019-06-09] MEDS: Ketorolac Tromethamine 30 MG/ML VIAL IVP SCH ×2 (11:22→18:47)
[2019-06-09] MEDS: Atorvastatin Calcium 40 MG TAB PO SCH (20:32)
[2019-06-09] MEDS: Mirtazapine 15 MG TAB PO SCH (20:32)
[2019-06-09] MEDS: Atenolol 50 MG TAB PO SCH (20:33)
[2019-06-09] MEDS: Amlodipine 10 MG TAB PO SCH (20:33)
[2019-06-09] MEDS: Lisinopril 20 MG TAB PO SCH (20:34)
[2019-06-10] MEDS: traMADol HCl 50 MG TAB PO PRN ×3 (05:09→17:08)
--- NOTE | 2019-06-10 09:39 | RAD ---
CHEST 1 VIEW: HISTORY: Status post thoracotomy. COMPARISON: 06/09/2019. FINDINGS: Normal cardiac silhouette. Atherosclerosis of the aorta. Stable left-sided chest tube. Chronic cari nge of the lung parenchyma. Small bilateral pleural effusions. No pneumothorax. IMPRESSION: No significant interval change. POS: NGOC
--- NOTE | 2019-06-10 11:52 | PRG ---
DATE OF SERVICE: 06/10/2019 SUBJECTIVE: Abena Sadler is a 78-year-old female, status post thoracotomy and left-sided chest tube. X-ray today shows small pleural effusion in the right side. OBJECTIVE: VITAL SIGNS: Temperature . Denies any pain or shortness of breath. CHEST: Decreased breath sounds. No wheezing. CARDIAC: Normal S1 and S2. No gallops. ABDOMEN: No masses. ASSESSMENT: 1. Left pleural effusion. 2. Small right pleural effusion. 3. Status post chest tube drainage. PLAN: 1. Await pathology. 2. Continue neb treatments as needed. 3. We will follow. Job ID: [id number]
[2019-06-10] MEDS: Lisinopril 20 MG TAB PO SCH (20:03)
[2019-06-10] MEDS: Atenolol 50 MG TAB PO SCH (20:04)
[2019-06-10] MEDS: Atorvastatin Calcium 40 MG TAB PO SCH (20:04)
[2019-06-10] MEDS: Mirtazapine 15 MG TAB PO SCH (20:04)
[2019-06-10] MEDS: Amlodipine 5 MG TAB PO SCH (20:04)
[2019-06-10] MEDS: Enoxaparin Sodium 30 MG/0.3 ML SYRINGE SC SCH (20:06)
[2019-06-11] MEDS: traMADol HCl 50 MG TAB PO PRN ×3 (03:44→23:25)
--- NOTE | 2019-06-11 09:08 | RAD ---
FRONTAL VIEW: COMPARISON: Previous day. INDICATION: Status post thoracotomy. FINDINGS: Bilateral pleural-based densities at the inferior chest are present and there are diffuse interstitia l opacities bilaterally. Cardiomediastinal silhouette is prominent. Left side chest tube remains, w ith tip overlying the superolateral left chest. The chest is otherwise similar-appearing. IMPRESSION: Persistent bilateral pulmonary parenchymal and pleural-based opacities. POS: NWK
--- NOTE | 2019-06-11 10:28 | PRG ---
DATE OF SERVICE: 06/11/2019 SUBJECTIVE: Abena Sadler this morning is doing well. Less pain. Less shortness of breath. OBJECTIVE: VITAL SIGNS: Saturations are still low 92% on 2 L, temperature 98, pulse 87, and blood pressure 103/56. CHEST: Bilateral crackles. CARDIAC: Normal S1, S2. No gallops. ABDOMEN: No masses. ASSESSMENT: Status post thoracoscopy, left chest. Bilateral pleural effusions. Still awaiting path report. Continue supportive care. PT. Neb treatments. We will follow. Job ID: [id number]
[2019-06-11] MEDS: Fentanyl 100 MCG/2 ML VIAL SLOW IVP PRN (20:36)
[2019-06-11] MEDS: Atorvastatin Calcium 40 MG TAB PO SCH (20:37)
[2019-06-11] MEDS: Amlodipine 5 MG TAB PO SCH (20:37)
[2019-06-11] MEDS: Atenolol 50 MG TAB PO SCH (20:37)
[2019-06-11] MEDS: Lisinopril 20 MG TAB PO SCH (20:37)
[2019-06-11] MEDS: Mirtazapine 15 MG TAB PO SCH (20:38)
[2019-06-11] MEDS: Enoxaparin Sodium 30 MG/0.3 ML SYRINGE SC SCH (20:38)
[2019-06-12] MEDS: traMADol HCl 50 MG TAB PO PRN ×2 (05:25→21:14)
[2019-06-12] MEDS ORDERED: Ibuprofen 800 MG TAB PO PRN (07:21)
--- NOTE | 2019-06-12 08:05 | RAD ---
UPRIGHT PORTABLE CHEST 1 VIEW: HISTORY: Status post thoracotomy. COMPARISON: 06/11/2019. FINDINGS: Small bilateral pleural effusions with some increased interstitial and linear markings bilaterally. IMPRESSION: Stable-appearing chest with left chest tube in place without significant pneumothorax. Bilateral bas ilar pleural and parenchymal opacity changes. Continues short-term followup. POS: OFF
--- NOTE | 2019-06-12 12:04 | PRG ---
DATE OF SERVICE: 06/12/2019 SERVICE: Pulmonary Medicine. INTERVAL HISTORY: The patient is doing really quite well from respiratory standpoint. She has no complaints of nausea or vomiting. Her pain is under really good control. Her appetite is fluctuating, but for the most part, she is getting enough food down. She denies having any lightheadedness, or lack of strength. She was able to get up with physical therapy yesterday and walk the hallways. She still has a chest tube in place because she is putting out a little bit of too much fluid yet. PHYSICAL EXAMINATION: VITAL SIGNS: Afebrile, pulse 77, blood pressure 88/47, respirations 19, and saturation 96% on 3 L nasal cannula. GENERAL: The patient is awake and alert, in no apparent distress. LUNGS: Very good air entry. No prolonged expiratory phase or wheezing is appreciated. HEART: Normal rate and regular. ABDOMEN: Soft, nontender, nondistended. Bowel sounds are positive. MUSCULOSKELETAL: No cyanosis or clubbing. There is no pitting in the bilateral lower extremities. NEUROLOGIC: Grossly nonfocal. IMAGING STUDIES: Chest x-ray demonstrates left-sided thoracostomy tube is in good position. ASSESSMENT: 1. Pleural effusion on the left, status post left thoracoscopy and mechanical pleurodesis, postoperative day #4. 2. Pleural studding/nodules. DISCUSSION AND PLAN: The pathology results are still pending. We will continue our mobilization efforts. Hopefully, we will be able to get the chest tube out soon enough. If she does not stop putting fluid out, there is a good chance it will not quit. Once the pathology comes back, we will have a better idea of how to manage this most appropriately. Job ID: [id number] MTDD
[2019-06-12] MEDS: Atenolol 50 MG TAB PO SCH (21:13)
[2019-06-12] MEDS: Enoxaparin Sodium 30 MG/0.3 ML SYRINGE SC SCH (21:14)
[2019-06-12] MEDS: Mirtazapine 15 MG TAB PO SCH (21:14)
[2019-06-12] MEDS: Amlodipine 5 MG TAB PO SCH (21:14)
[2019-06-12] MEDS: Atorvastatin Calcium 40 MG TAB PO SCH (21:14)
[2019-06-12] MEDS: Lisinopril 20 MG TAB PO SCH (21:14)
[2019-06-13] MEDS: traMADol HCl 50 MG TAB PO PRN ×2 (05:24→17:15)
--- NOTE | 2019-06-13 07:45 | RAD ---
Exam: Chest one view: HISTORY: Status post thoracotomy COMPARISON: 06/12/2019 FINDINGS: Bilateral pleural and parenchymal opacity changes with some bilateral pleural effusions greater on th e right side. Left chest tube in place. No significant pneumothorax. IMPRESSION: Stable chest. Continued short-term follow-up.
[2019-06-13] MEDS ORDERED: Clindamycin/D5W 900 mg/50 ml Premix Bag ONE (10:24)
[2019-06-13] MEDS ORDERED: Levofloxacin 500 mg/D5W 100 ml Premix Bag ONE (10:25)
[2019-06-13] MEDS ORDERED: Clindamycin/D5W 900 MG in Premix Bag 1 BAG IVPB SCH (12:00)
[2019-06-13] MEDS ORDERED: Bupivacaine/Epinephrine 0.25% 30 ML VIAL ONE (12:36)
[2019-06-13] MEDS ORDERED: Fentanyl 100 MCG/2 ML VIAL ONE (13:17)
--- NOTE | 2019-06-13 14:08 | PRG ---
DATE OF SERVICE: 06/13/2019 SERVICE: Pulmonary Medicine. INTERVAL HISTORY: The preliminary results from pathology are back. They are very concerned that they are dealing with malignant mesothelioma. That being said, the sample was sent to [facility] for additional investigation. The patient has elected to move forward with a PleurX catheter as she has not had any decrease in output from her drainage. She understands that she is going to drain this thing 2 to 3 days per week. If the fluid ever stops coming, she will notify us and we will set up the removal of this device. She denies any current fevers or chills. There are no significant overnight events. Her pain is essentially at baseline. PHYSICAL EXAMINATION: VITAL SIGNS: Afebrile, pulse 78, blood pressure 100/53, respirations 22, and saturation 97% on 3 L nasal cannula. GENERAL: The patient is awake and alert, in no apparent distress. LUNGS: Very good air entry with no prolonged expiratory phase. No rhonchi or wheezing appreciated. HEART: Normal rate and regular. ABDOMEN: Soft, nontender, and nondistended. Bowel sounds are positive. MUSCULOSKELETAL: No cyanosis or clubbing. No pitting in the bilateral lower extremities. NEUROLOGIC: Grossly nonfocal. IMAGING: Chest x-ray demonstrates good expansion of bilateral lungs with no obvious effusion. Thoracostomy tube remains in place. ASSESSMENT: 1. Malignant mesothelioma, suspected. 2. Malignant pleural effusion. DISCUSSION AND PLAN: I am going to be moving forward with a PleurX catheter placement. I am going to place an Oncology consultation. Once a good plan is in place on discharge from the hospital, she will be ready to get out of here. This can happen as early as today or tomorrow. She will need to undergo some training on the PleurX before she is officially dismissed. Pulmonary will continue to follow while she remains in-house. Job ID: [id number]
[2019-06-13] MEDS: Fentanyl 100 MCG/2 ML VIAL SLOW IVP PRN ×2 (15:26→19:47)
--- NOTE | 2019-06-13 15:50 | PDOC.PALCO ---
Palliative Care Consult - Consult Details Requesting Physician: Dr Martin Reason for Consult: advance directives assistance Family Members Present: Daughter - Pertinent HPI Recurrent pleural effusion, has a history of asbestos exposure. Palliative care consult to discuss resuscitation status. - Pertinent PMH Major depressive disorder, dyslipidemia, hypertension, recurrent pleural - Social History Smoking Status: Never smoker Smoking: no tobacco exposure Alcohol Use: none Drug Use History: none Living Situation: independent - Medications MAR Reviewed: Yes - Allergies Allergies/Adverse Reactions: Allergies Allergy/AdvReac Type Severity Reaction Status Date / Time amoxicillin [From Amoxil] Allergy Verified 06/08/19 15:30 butalbital [From Fiorinal] Allergy Verified 06/08/19 15:30 carvedilol [From Coreg] Allergy Verified 06/08/19 15:30 chlorthalidone Allergy Verified 06/08/19 15:30 citalopram [From Celexa] Allergy Verified 06/08/19 15:30 codeine Allergy Verified 06/08/19 15:30 diphenhydramine Allergy Verified 06/08/19 15:30 [From Benadryl] erythromycin base Allergy Verified 06/08/19 15:30 metronidazole Allergy Verified 06/08/19 15:30 morphine Allergy Verified 06/08/19 15:30 paroxetine [From Paxil] Allergy Verified 06/08/19 15:30 penicillin V [From Pen-Vee K] Allergy Verified 06/08/19 15:30 tramadol [From Ultram] Allergy Verified 06/08/19 15:30 atenolol AdvReac Verified 06/08/19 15:30 TUSS-ORNADE Allergy Uncoded 04/03/19 00:11 - Subjective O2 in place, no complaints at time of assessment ROS: 10 point review negative - Objective Vital Signs: Vital Signs - Most Recent Temp Pulse Resp BP Pulse Ox 98 F 90 103/79 96 06/13/19 04:00 06/12/19 21:14 06/12/19 21:14 06/13/19 07:51 Palliative Performance Scale: 60 - Physical Exam Constitutional: NAD HEENT: moist MMs, EOMI Deviation from normal: weak cough, non productive Cardiovascular: RRR Neurological: moves all 4 limbs Psychiatric: normal affect, A&O x 3 Skin: no rash - Problem List (1) Palliative care encounter Code(s): Z51.5 - ENCOUNTER FOR PALLIATIVE CARE Current Visit: Yes Status: Acute - Plan/Recommendations Plan: Discussed resuscitation status with patient and daughter, confirmed no resuscitative measures to be made. Also mentioned if the need arouse no PEG tube. [40] minutes spent on this encounter with >50% of the time in counseling and coordination of care. Thank you for this very appropriate consult.
--- NOTE | 2019-06-13 16:22 | OP ---
DATE OF PROCEDURE: 06/13/2019 PREOPERATIVE DIAGNOSIS: Left malignant effusion secondary to mesothelioma. POSTOPERATIVE DIAGNOSIS: Left malignant effusion secondary to mesothelioma. PROCEDURE PERFORMED: Left PleurX catheter placement. DESCRIPTION OF PROCEDURE: After consent was obtained, the patient was brought to the operating room, placed in supine position on the operating room table. Appropriate central line was placed. IV sedation was begun. The left chest wall was prepped and draped in usual sterile fashion. Percutaneous access to the pleural cavity was obtained and the catheter tunneled subcutaneously from the midclavicular line around to the percutaneous access site. Access site was dilated and then a peel-away sheath placed. The catheter was passed through the peel-away sheath. The catheter was secured with silk suture and the wound was closed. The sterile dressing was applied. The patient tolerated the procedure well, was transferred to recovery area in stable condition. Job ID: [id number]
[2019-06-13] MEDS ORDERED: Lidocaine 1% PF 5 ML VIAL ONE (17:22)
[2019-06-13] MEDS ORDERED: PROPOFOL 200 MG/20 ML VIAL ONE (17:22)
[2019-06-13] MEDS: Amlodipine 5 MG TAB PO SCH (21:54)
[2019-06-13] MEDS: Enoxaparin Sodium 30 MG/0.3 ML SYRINGE SC SCH (21:54)
[2019-06-13] MEDS: Atorvastatin Calcium 40 MG TAB PO SCH (21:54)
[2019-06-13] MEDS: Atenolol 50 MG TAB PO SCH (21:54)
[2019-06-13] MEDS: Lisinopril 20 MG TAB PO SCH (21:55)
[2019-06-13] MEDS: Mirtazapine 15 MG TAB PO SCH (21:57)
[2019-06-14] MEDS: Fentanyl 100 MCG/2 ML VIAL SLOW IVP PRN (06:14)
[2019-06-14] MEDS: Atenolol 50 MG TAB PO SCH (06:15)
[2019-06-14 06:16] VITALS: BP 108/59
[2019-06-14 07:15] VITALS: TEMP 98.3
--- NOTE | 2019-06-14 10:10 | PRG ---
DATE OF SERVICE: 06/14/2019 SERVICE: Pulmonary Medicine. INTERVAL HISTORY: The patient is doing great from respiratory standpoint. She is breathing comfortably. She understands how to do the PleurX exchanges. She has no nausea, vomiting, chest pain, fevers, or chills. Otherwise, she is in her usual state of health. PHYSICAL EXAMINATION: VITAL SIGNS: Afebrile, pulse 96, blood pressure 93/48, respirations 17, and saturation 97% on room air. GENERAL: The patient is awake and alert, in no apparent distress. LUNGS: Decent air entry bilaterally. No prolonged expiratory phase is present. HEART: Normal rate. Regular. ABDOMEN: Soft, nontender, and nondistended. Bowel sounds are positive. MUSCULOSKELETAL: No cyanosis or clubbing. No pitting in the bilateral lower extremities. NEUROLOGIC: Grossly nonfocal. DISCUSSION AND PLAN: 1. Malignant mesothelioma, suspected. 2. Malignant pleural effusion. DISCUSSION AND PLAN: The patient is doing fine from respiratory standpoint. At this point, she is stable for transition out of the hospital provided. She has close followup with Oncology. Pulmonary/Critical Care will continue to follow along while the patient remains inhouse. Job ID: [id number]
--- NOTE | 2019-06-14 10:43 | DIS ---
DATE OF ADMISSION: 06/08/2019 DATE OF DISCHARGE: 06/14/2019 DIAGNOSIS: Left lung and pleural cavity mesothelioma. DESCRIPTION OF HOSPITAL STAY: Ms. Sadler was brought into the hospital with recurrent left-sided pleural effusion. A thoracoscopy was performed with biopsies of multinodular areas of the pleura and the lung. This returned as mesothelioma. She initially was managed with a chest tube after pleurodesis. Subsequently, she has had a PleurX catheter placed. She is being discharged home today. Dr. Rodrigues has arranged oncologic followup. She has been instructed in PleurX use. Job ID: [id number]
== END 2019-06-14 09:05 | disposition home or self-care (01) | DRG 167 ==
LOC: INTOOBSV 06-08 05:46 → OBSVTOIN 06-08 05:46 → SURG A 06-08 05:46 → IMCU/EMU 06-08 15:08 → EDSTATUS 06-08 15:15
PROVIDERS: ADMIT Thoracic Surgery (Cardiothoracic Vascular Surgery); ATTEND Thoracic Surgery (Cardiothoracic Vascular Surgery)
PROC: 0W9B30Z Drainage of Left Pleural Cavity with Drainage Device, Percutaneous Approach (ICD-10-PCS; principal; 2019-06-08)
PROC: 0BBC4ZX Excision of Right Upper Lung Lobe, Percutaneous Endoscopic Approach, Diagnostic (ICD-10-PCS; 2019-06-08)
PROC: 0W9B30Z Drainage of Left Pleural Cavity with Drainage Device, Percutaneous Approach (ICD-10-PCS; 2019-06-08)
PROC: 0BBP4ZX Excision of Left Pleura, Percutaneous Endoscopic Approach, Diagnostic (ICD-10-PCS; 2019-06-13)
DX: C45.0 Mesothelioma of pleura (principal); J91.0 Malignant pleural effusion; F32.9 Major depressive disorder, single episode, unspecified; E78.5 Hyperlipidemia, unspecified; I10 Essential (primary) hypertension; Z51.5 Encounter for palliative care; C45.7 Mesothelioma of other sites; Z88.3 Allergy status to other anti-infective agents; Z88.5 Allergy status to narcotic agent; Z88.0 Allergy status to penicillin; Z88.8 Allergy status to other drugs, medicaments and biological substances
CPT/HCPCS: 36415; 71045; 80048; 85025; 85027; 88112; 88305; 88307; 88321; 88341; 88342; 93005; 93010; C1729; J0670; J0690; J1642; J1650; J1720; J1885; J1956; J2001; J2250; J2405; J2704; J3010; J3490; S0020

== ENCOUNTER 2019-06-22 07:36 | Outpatient (CLI) | payer MEDICARE ==
--- NOTE | 2019-06-22 11:57 | PET ---
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 Exam requested for initial staging. Vijaya tierney also has a history of left breast cancer treated with lumpectomy and chemo/radiation therapy in 1992. TECHNIQUE: PET scanning with CT attenuation correction was performed from the base of the brain through the prox imal thighs following the intravenous administration of 11.2 mCi F18-FDG in the right antecubital fos sa. COMPARISON: None. FINDINGS: There is diffuse increased FDG localization in the left pleura with a maximum SUV of 5.6 in the upper mediastinal region. No hypermetabolic mediastinal, hilar, axillary, cervical, or abdominopelvic lymph nodes are seen. No hypermetabolic pulmonary nodules, liver, adrenal, or skeletal lesions are seen. There is physiologic activity in the GI and tracts, and the visualized portions of the brain. Ther e are bilateral pleural effusions, left larger than right. The left-sided pleural effusion has appear ance of loculations. No ascites seen. There is colonic diverticulosis and a 3.7 cm left adnexal mass. IMPRESSION: 1. Findings consistent with mesothelioma in the left chest. 2. No evidence of metastatic disease. 3. 3.7 cm left adnexal mass should be evaluated with pelvic ultrasound. POS: JONATHAN
--- NOTE | 2019-06-22 13:14 | CT ---
CT BRAIN WITH AND WITHOUT CONTRAST: DATE: 06/22/2019 HISTORY: 78-year-old female with mesothelioma of the pleura. Rule out brain metastasis. TECHNIQUE: Precontrast scan of the brain. IV injection of iodinated contrast media. Postcontrast scan of brain. FINDINGS: There is no evidence of acute intra-axial or extra-axial hemorrhage. There is no midline shift or any other mass effect. There is no extra-axial fluid collection. There is mild ventriculomegaly, probably on the basis of central brain parenchymal volume loss. At least mild chronic ischemic white matter changes. There is no convincing evidence of obstructive hydrocephalus. There is no abnormal enhancement or mass. Calvarium is intact. IMPRESSION: No evidence of intracranial metastasis.
[2019-06-22] MEDS ORDERED: Iopamidol 370 76% 100 ML VIAL ONE (17:13)
== END 2019-06-22 07:37 | disposition home or self-care (01) ==
LOC: PET 07:36 → CT 07:37
PROVIDERS: ATTEND Internal Medicine Hematology & Oncology
DX: C45.0 Mesothelioma of pleura (principal)
CPT/HCPCS: 70470; 78815; A9552; Q9967

== ENCOUNTER 2019-07-05 14:30 | Outpatient (CLI) | payer MEDICARE ==
--- NOTE | 2019-07-05 14:51 | RAD ---
XR Chest Pa Lat @ POB History: Dyspnea Comparison: Radiograph June 13, 2019 Findings: Similar appearance of the loculated left effusion. Mild interval size increase right layeri ng pleural effusion. There is peripheral parenchyma scarring throughout both hemithoraces. No pneumothorax. Drainage shahrzad ter projects over the upper abdomen. Impression: Unchanged examination of the chest.
== END 2019-07-05 14:31 | disposition home or self-care (01) ==
LOC: RAD 14:30
PROVIDERS: ATTEND Thoracic Surgery (Cardiothoracic Vascular Surgery)
DX: J90 Pleural effusion, not elsewhere classified (principal)
CPT/HCPCS: 71046

== ENCOUNTER 2019-07-10 09:03 | Day surgery (SDC) | payer MEDICARE ==
[2019-07-07 08:44] VITALS: BMI 23.0
[2019-07-10] MEDS ORDERED: Bupivacaine HCl 0.5%/Epinephrine 1:200,000/PF 30 ml Vial ONE (10:12)
--- NOTE | 2019-07-10 15:04 | OP ---
DATE OF PROCEDURE: 07/10/2019 PREOPERATIVE DIAGNOSIS: End-of-life of PleurX catheter. POSTOPERATIVE DIAGNOSIS: End-of-life of PleurX catheter. PROCEDURE PERFORMED: PleurX catheter removal. ANESTHESIA: 0.5% Marcaine with epinephrine and IV sedation. DESCRIPTION OF PROCEDURE: After consent was obtained, the left chest wall was prepped and draped in usual sterile fashion. The patient was sedated. The skin and subcutaneous tissues were infiltrated with 0.5% Marcaine. The exit site and cuff were sharply dissected and the cuff and catheter removed in toto. Sterile dressing was applied. The patient tolerated the procedure well. She will be discharged home later today. Job ID: [id number]
== END 2019-07-10 13:10 | disposition home or self-care (01) ==
LOC: SDC 09:03
PROVIDERS: ATTEND Thoracic Surgery (Cardiothoracic Vascular Surgery)
PROC: 0WPBX0Z Removal of Drainage Device from Left Pleural Cavity, External Approach (ICD-10-PCS; principal; 2019-07-10)
DX: J90 Pleural effusion, not elsewhere classified (principal); F17.210 Nicotine dependence, cigarettes, uncomplicated; Z79.899 Other long term (current) drug therapy; Z88.0 Allergy status to penicillin; Z88.1 Allergy status to other antibiotic agents; Z88.5 Allergy status to narcotic agent; Z88.8 Allergy status to other drugs, medicaments and biological substances
CPT/HCPCS: J0670; J0690

== ENCOUNTER 2019-08-28 12:43 | Outpatient (CLI) | payer MEDICARE ==
[~2019-08-28 12:43] MED LIST: Iopamidol-370 76% 500 ML 1 ML ONE
--- NOTE | 2019-08-28 14:08 | CT ---
EXAM: CT chest, and abdomen with IV contrast: HISTORY: Mesothelioma. COMPARISON: PET/CT scan exam on 06/22/[address] thorax on 04/05/2019 FINDINGS: CT THORAX: Lungs: Again noted is the left pleural effusion which appears loculated at the left lung base. There is curvilinear suture material seen in the anterolateral aspect of the left lower lobe. Small amount of fluid is seen in the lower aspect of the major fissure. There is left apical pleural thicke jason present which was also seen on the prior exams. A few smaller areas of pleural thickening are seen involving the anterolateral left mid lung zone with adjacent linear densities probably due to sc arring. Again these findings are overall similar to the prior exam. An area of pleural thickening adjacent to the upper mediastinum on prior PET CT scan exam has improved. The right pleural effusion has resolved. There is minimal right apical pleural and parenchymal scarri ng with emphysematous changes present in the right lung apex. Lymph nodes: Few scattered subcentimeter mediastinal lymph nodes are seen, but there are no enlarged lymph nodes seen by CT size criteria. Mediastinum: Vascular calcifications are seen in the thoracic aorta. Few hypodense nodules are seen i n each lobe of the thyroid gland also seen on prior CT exam. A trace pericardial effusion is present. Chest wall: Surgical clips are seen in the left axillary region. CT ABDOMEN: Liver: Within normal limits. Gallbladder: Within normal limits. \ Pancreas: Within normal limits. Spleen: Within normal limits. Adrenal glands: Within normal limits. Kidneys: There is an increased density lesion in the midportion left kidney measuring 1.4 cm. This al so demonstrates increased density on the PET CT scan exam and is likely related to Bosniak type II renal cystic lesion. A subcentimeter too small to characterize hypodense lesion is seen in the inferi or pole left kidney. Mild scarring is seen involving each kidney. This particular be mild renal cortical thinning on the right. Bowel: A duodenal diverticulum seen involving the second portion of the duodenum. The loops of small bowel are normal in caliber. A few colonic diverticula are seen. Adenopathy:No lymphadenopathy within the abdomen or pelvis. Peritoneum: No free fluid or fluid collection is seen. No free intraperitoneal gas is identified. Abdominal wall: No abnormalities seen. Osseous structures: There is left convex rotoscoliosis of the thoracolumbar spine. Degenerative johnston es are seen in the spine. No lytic or sclerotic osseous lesions are seen. IMPRESSION: 1. Persistent left pleural effusion with pleural thickening in the left lung apex with pleural thicke jason adjacent to the upper mediastinum on PET/CT exam has improved. No new area of pleural thickening is seen. 2. Postsurgical changes left lower lobe. 3. No evidence of lymphadenopathy. 4.Bosniak type II renal cystic lesion with subcentimeter too small to characterize hypodense lesion l eft kidney. 5. Stable hypodense nodules each lobe of thyroid gland
== END 2019-08-28 12:44 | disposition home or self-care (01) ==
LOC: BICCT 12:43
PROVIDERS: ATTEND Internal Medicine Hematology & Oncology
DX: C45.0 Mesothelioma of pleura (principal); R93.7 Abnormal findings on diagnostic imaging of other parts of musculoskeletal system; J90 Pleural effusion, not elsewhere classified; J92.9 Pleural plaque without asbestos; N28.1 Cyst of kidney, acquired; N28.9 Disorder of kidney and ureter, unspecified; E04.2 Nontoxic multinodular goiter; Z98.890 Other specified postprocedural states
CPT/HCPCS: 71260; 74160; 82565; Q9967

== ENCOUNTER 2019-12-05 09:20 | Outpatient (CLI) | payer MEDICARE ==
[2019-12-05] MEDS ORDERED: Iopamidol-370 76% 500 ML 1 ML ONE (12:40)
--- NOTE | 2019-12-05 12:59 | CT ---
CT CHEST AND ABDOMEN PERFORMED WITH CONTRAST ENHANCEMENT: Date: 12/05/2019 HISTORY: Mesothelioma follow-up. History of left breast cancer. COMPARISON: 08/28/2019 study. FINDINGS: CT CHEST: There is biapical pleural and parenchymal thickening with more prominent nodularity in the left upper lobe. All of these changes are stable as compared to the prior exam. Interstitial lung changes along the anterior left chest wall are also stable. The loculated appearing left pleural effusion is also not felt to be significantly changed since the previous study. Postoperative changes in the left lowe r lobe are also unchanged. Right lung is clear. Small thyroid nodules again identified. No significant mediastinal or hilar lymphadenopathy. CT ABDOMEN: CT of abdomen was performed with contrast enhancement. The liver and spleen show no focal findings. P ancreas and gallbladder regions appear unremarkable. Right and left adrenal glands are normal. An approximately 1.4 cm hypodense lesion involving the left kidney has CT Hounsfield unit numbers higher than typical for a cyst, but this appears stable as com pared to the prior examination. A tiny subcentimeter hypodensity in the lower pole region is also sta ble and a very tiny hypodensity within the anterior cortex of the right kidney is more difficult to v isualize than on the prior exam but also felt to be stable. No significant periaortic or mesenteric a denopathy. IMPRESSION: 1. Stable changes to the chest and abdomen. 2. Within the chest, the apical pleural and parenchymal lung changes, which are greater in the left apex, are stable. The loculated left effusion is unchanged, and the interstitial changes along the an terior chest wall all show no significant interval change. 3. Stable Bosniak II lesion measuring 1.4 cm in size involving the left kidney. 4. Marked scoliosis. POS: [facility]
== END 2019-12-05 09:21 | disposition home or self-care (01) ==
LOC: BICCT 09:20
PROVIDERS: ATTEND Internal Medicine Hematology & Oncology
DX: C45.0 Mesothelioma of pleura (principal); M41.9 Scoliosis, unspecified; J90 Pleural effusion, not elsewhere classified; J98.4 Other disorders of lung; N28.1 Cyst of kidney, acquired
CPT/HCPCS: 71260; 74160; 82565

== ENCOUNTER 2020-11-22 09:23 | Outpatient (CLI) | payer MEDICARE ==
[2020-11-22] MEDS ORDERED: Iopamidol 370 76% 100 ML VIAL ONE (10:19)
--- NOTE | 2020-11-22 14:55 | CT ---
CT OF THE THORAX WITH IV CONTRAST: 11/22/20 INDICATIONS: 80-year-old female with history of mesothelioma of the pleura. COMPARISON: Prior CT of the thorax dated 05/27/20. FINDINGS: The pleural parenchymal scarring involving the right lung apex with biapical bullous disease is stabl e. The nodularity involving the left pleural space is largely stable with the most prominent pleural based soft tissue nodule seen along the medial aspect of the left upper lobe on image 33 of series 2 measuring approximately 3.5 x 1.7 cm. The stated nodularities seen along the fissures and along the p eriphery of the left lung is largely stable. The loculated complex pleural effusion is largely stabl e in size. Scattered emphysema is similar. Right sided pleural effusion is evident. No pathologically enlarged lymph nodes are evident within the mediastinum, hilar or axillary regions. Within the upper abdomen, there is no acute abnormality. There are coronary artery and thoracic aortic calcifications . There is thoracolumbar scoliosis with diffuse osteopenia. No definite acute osseous abnormality is evident. Scattered degenerative and osteoarthritic change. IMPRESSION: 1. Stable examination. 2. The pleural based nodularity of the left hemithorax consistent with the patient's history of mesothelioma is stable. The most prominent soft tissue pleural based mass is seen within the medial a spect of the left upper lobe measuring 3.5 x 1.7 cm. 3. Stable COPD change. Stable pleural parenchymal scarring involving the right lung apex. 4. Stable complicated small left sided pleural effusion. POS: [facility]
== END 2020-11-22 09:24 | disposition home or self-care (01) ==
LOC: BICCT 09:23
PROVIDERS: ATTEND Internal Medicine Hematology & Oncology
DX: C45.0 Mesothelioma of pleura (principal); J44.9 Chronic obstructive pulmonary disease, unspecified; J90 Pleural effusion, not elsewhere classified; R91.8 Other nonspecific abnormal finding of lung field
CPT/HCPCS: 71260; 82565; Q9967

== ENCOUNTER 2021-05-27 08:45 | Outpatient (CLI) | payer MEDICARE | END 2021-05-27 08:46 | disposition home or self-care (01) | LOC: BICCT 08:45 | PROVIDERS: ATTEND Internal Medicine Hematology & Oncology | DX: C45.0 Mesothelioma of pleura (principal); J43.9 Emphysema, unspecified; R91.8 Other nonspecific abnormal finding of lung field; J90 Pleural effusion, not elsewhere classified | CPT/HCPCS: 71260; 82565 ==

== ENCOUNTER 2021-11-25 09:25 | Outpatient (CLI) | payer MEDICARE | END 2021-11-25 09:26 | disposition home or self-care (01) | LOC: CT 09:25 | PROVIDERS: ATTEND Internal Medicine Hematology & Oncology | DX: C45.0 Mesothelioma of pleura (principal); J90 Pleural effusion, not elsewhere classified; R91.8 Other nonspecific abnormal finding of lung field | CPT/HCPCS: 71260; 82565 ==

== ENCOUNTER 2022-11-24 10:20 | Outpatient (CLI) | payer MEDICARE ==
[2022-11-24] MEDS ORDERED: Iopamidol-370 76% 500 ML 1 ML ONE (12:16)
== END 2022-11-24 10:21 | disposition home or self-care (01) ==
LOC: BICCT 10:20
PROVIDERS: ATTEND Internal Medicine Hematology & Oncology
DX: C45.0 Mesothelioma of pleura (principal); J90 Pleural effusion, not elsewhere classified; J92.9 Pleural plaque without asbestos
CPT/HCPCS: 71260; 82565; Q9967

== ENCOUNTER 2023-11-24 12:08 | Outpatient (CLI) | payer MEDICARE ==
[~2023-11-24 12:08] MED LIST changes: +Iopamidol 370 76% 100 ML VIAL ONE; -Iopamidol-370 76% 500 ML 1 ML ONE
== END 2023-11-24 12:09 | disposition home or self-care (01) ==
LOC: BICCT 12:08
PROVIDERS: ATTEND Internal Medicine Hematology & Oncology
DX: C45.0 Mesothelioma of pleura (principal); J92.9 Pleural plaque without asbestos; N28.9 Disorder of kidney and ureter, unspecified
CPT/HCPCS: 71260; 82565